=== PATIENT | female | born 1970 | race Hispanic/Latino ===

== ENCOUNTER 2017-12-06 18:12 | Emergency (ER) | payer OTHER, SELFPAY ==
--- NOTE | 2017-12-06 18:48 | RAD ---
PORTABLE CHEST: 12/06/17 HISTORY: Patient with heart palpitations and shortness of breath. COMPARISON: 06/22/17 study. Heart size and mediastinum are within normal limits. The lungs are clear of infiltrates. No bony find ings. IMPRESSION: No active intrathoracic disease. POS: [facility]
[2017-12-06 18:51] LABS: #Basophils 0.1 thou/uL (0.0-0.2); #Eosinphils 0.4 thou/uL (0.0-0.7); #Lymphocytes 2.5 thou/uL (1.20-3.40); #Monocytes 0.6 thou/uL (0.11-0.59); #Neutrophils 5.9 thou/uL (1.40-6.50); %Basophils 0.7 % (0.0-1.0); %Eosinophils 3.8 % (0.0-10.0); %Lymphocytes 26.8 % (21.0-51.0); %Monocytes 5.8 % (0.0-10.0); %Neutrophils 62.8 % (42.0-75.0); Hemoglobin 13.9 g/dL (12.0-16.0); Mean Corpuscular HGB CONC 33.8 g/dL (32.0-36.0); Mean Corpuscular Hemoglobin 31.8 pg (27.0-31.0); Mean Corpuscular Volume 94.2 fl (81.0-99.0); Mean Platelet Volume 7.9 fL (7.4-10.4); Platelet Count 236 thou/uL (130-400); RBC Distribution Width 12.9 % (11.5-14.5); Red Blood Cell (RBC) Count 4.36 mill/uL (4.20-5.40); White Blood Cell (WBC) Count 9.4 thou/uL (4.8-10.8)
[2017-12-06] MEDS ORDERED: Ketorolac Tromethamine 30 MG/ML VIAL ONE (18:52)
[2017-12-06 19:17] LABS: CKMB 0.8 ng/mL (0-6.6); Troponin I 0.012 ng/mL (< 0.028)
[2017-12-06 19:33] LABS: ALT (SGPT) 12 U/L (8-55); AST (SGOT) 12 U/L (5-34); Albumin 3.9 g/dL (3.5-5.0); Alkaline Phosphatase 69 U/L (40-150); Anion Gap 12 mmol/L (10-20); BUN (Urea Nitrogen) 10 mg/dL (7.0-18.7); Bilirubin, Total 0.6 mg/dL (0.2-1.2); CK (CPK) 71 U/L (29-168); Calc. Creatinine Clearance 0 mL/min (70-130); Calcium 8.9 mg/dL (7.8-10.44); Carbon Dioxide 24 mmol/L (22-29); Chloride 104 mmol/L (98-107); Estimated GFR-MDRD 83; Globulin 3.7 g/dL (2.4-3.5); Glucose 94 mg/dL (70-105); Lipase 30 U/L (8-78); Potassium 3.9 mmol/L (3.5-5.1); Protein, Total 7.6 g/dL (6.0-8.3); Sodium 136 mmol/L (136-145)
--- NOTE | 2017-12-09 12:09 | EKG ---
Test Reason : Blood Pressure : / mmHG Vent. Rate : 081 BPM Atrial Rate : 081 BPM P-R Int : 136 ms QRS Dur : 076 ms QT Int : 382 ms P-R-T Axes : 054 029 037 degrees QTc Int : 443 ms Normal sinus rhythm Normal ECG Confirmed by JAMESON FRANCOIS, LG ([id number]), editor farm journal TOMMIE CAMACHO ([id number]) on 12/09/2017 12:09:38 PM Referred By: Confirmed By:LG BARBA MD
== END 2017-12-06 19:43 | disposition home or self-care (01) ==
LOC: ERS 18:12
DX: J11.1 Influenza due to unidentified influenza virus with other respiratory manifestations (principal); R07.89 Other chest pain; J45.909 Unspecified asthma, uncomplicated; I45.6 Pre-excitation syndrome; G43.909 Migraine, unspecified, not intractable, without status migrainosus; Z79.899 Other long term (current) drug therapy
CPT/HCPCS: 36415; 71045; 80053; 82553; 83690; 84484; 85025; 93005; 96374; J1885

== ENCOUNTER 2018-03-08 18:13 | Inpatient (IN) | payer SELFPAY ==
[2018-03-08 20:12] LABS: #Basophils 0.1 thou/uL (0.0-0.2); #Eosinphils 0.3 thou/uL (0.0-0.7); #Lymphocytes 2.6 thou/uL (1.20-3.40); #Monocytes 0.7 thou/uL (0.11-0.59); #Neutrophils 7.5 thou/uL (1.40-6.50); %Eosinophils 2.9 % (0.0-10.0); %Lymphocytes 23.2 % (21.0-51.0); %Neutrophils 66.9 % (42.0-75.0); Hemoglobin 15.2 g/dL (12.0-16.0); Mean Corpuscular HGB CONC 33.6 g/dL (32.0-36.0); Mean Corpuscular Hemoglobin 31.2 pg (27.0-31.0); Mean Corpuscular Volume 92.9 fl (81.0-99.0); Mean Platelet Volume 7.6 fL (7.4-10.4); Platelet Count 296 thou/uL (130-400); RBC Distribution Width 12.4 % (11.5-14.5); Red Blood Cell (RBC) Count 4.86 mill/uL (4.20-5.40); White Blood Cell (WBC) Count 11.2 thou/uL (4.8-10.8)
[2018-03-08 20:37] LABS: ALT (SGPT) 17 U/L (8-55); AST (SGOT) 17 U/L (5-34); Albumin 4.2 g/dL (3.5-5.0); Alkaline Phosphatase 69 U/L (40-150); Anion Gap 13 mmol/L (10-20); BUN (Urea Nitrogen) 13 mg/dL (7.0-18.7); Bilirubin, Total 0.3 mg/dL (0.2-1.2); Calc. Creatinine Clearance 0 mL/min (70-130); Calcium 9.6 mg/dL (7.8-10.44); Carbon Dioxide 25 mmol/L (22-29); Chloride 102 mmol/L (98-107); Estimated GFR-MDRD 81; Globulin 4.1 g/dL (2.4-3.5); Glucose 94 mg/dL (70-105); Potassium 3.8 mmol/L (3.5-5.1); Protein, Total 8.3 g/dL (6.0-8.3); Sodium 136 mmol/L (136-145)
[2018-03-08] MEDS ORDERED: Ketorolac Tromethamine 30 MG/ML VIAL ONE (20:37)
[2018-03-08] MEDS ORDERED: diphenhydrAMINE 50 MG/ML VIAL ONE (20:37)
[2018-03-08] MEDS ORDERED: Metoclopramide HCl 10 MG/2 ML VIAL ONE (20:37)
[2018-03-08 20:41] LABS: Troponin I Less than 0.010 ng/mL (< 0.028)
[2018-03-08 21:09] LABS: Bilirubin Negative (Negative); Blood, Urine Small (Negative); Clarity CLEAR (Clear); Glucose, Urine (Dipstick) Negative (Negative); Leukocyte Negative (Negative); Nitrite Negative (Negative); Protein, Urine (Dipstick) Negative (Neg-Trace); Specific Gravity, Urine 1.011 (1.002-1.036); Urobilinogen 0.2 mg/dL (0.2-1.0)
[2018-03-08 21:12] LABS: Bacteria/HPF None Seen HPF (None Seen); Hyaline Casts/LPF 0-3 HYALINE CAST LPF (0-3 Hyaline); Pathc Cast-AUWi Flag 0.14 (0-2.49); Squamous Epithelial 0-3 HPF (0-3); WBC/HPF None Seen HPF (0-3)
[2018-03-08 21:16] LABS: Amphetamine Not Detected (NotDetected); Barbiturates Screen Not Detected (NotDetected); Benzodiazepine Screen Not Detected (NotDetected); Cocaine Metabolite Screen Not Detected (NotDetected); Medtox Control Line Valid? VALID (VALID); Medtox Reader # READER 1; Methadone Not Detected (NotDetected); Methamphetamine Not Detected (NotDetected); Opiate Screen Not Detected (NotDetected); Oxycodone Screen Not Detected (NotDetected); Phencyclidine (PCP) Not Detected (NotDetected); THC/Cannabinoid Screen Not Detected (NotDetected); Tricyclic Screen Not Detected (NotDetected)
[2018-03-08] MEDS ORDERED: methylPREDNISolone Sod Succ/PF 125 MG/2 ML VIAL ONE (22:51)
[2018-03-08] MEDS ORDERED: Magnesium Sulfate 2 GM/100 ML BAG ONE (22:51)
[2018-03-08] MEDS ORDERED: Water For Inject, Bacteriostat 30 ML ONE (22:52)
[2018-03-09] MEDS ORDERED: Valproate Sodium 1,000 MG in Sodium Chloride 0.9% 100 ML IVPB SCH ×2 (01:30→16:15)
[2018-03-09] MEDS ORDERED: Haloperidol Lactate 5 MG/ML VIAL ONE (02:50)
[2018-03-09] MEDS ORDERED: diphenhydrAMINE 50 MG/ML VIAL ONE (04:45)
[2018-03-09] MEDS ORDERED: Morphine 4 MG/ML VIAL SLOW IVP SCH (09:45)
[2018-03-09] MEDS: Ondansetron HCl/PF 4 MG/2 ML Vial IVP PRN (10:10)
[2018-03-09] MEDS ORDERED: Valproic Acid 250 MG CAP PO PRN (10:27)
[2018-03-09] MEDS ORDERED: Mag-Al 1200 mg/1200 mg/30 ML UDCUP PO PRN (10:27)
[2018-03-09] MEDS ORDERED: Calcium Carbonate 500 MG ChewTAB PO PRN (10:27)
[2018-03-09] MEDS ORDERED: Senokot 8.6 MG TAB PO PRN (10:27)
[2018-03-09] MEDS ORDERED: Sodium Chloride 0.9% 1,000 ML IV SCH (10:30)
[2018-03-09 10:58] VITALS: BMI 38.7
[2018-03-09] MEDS: traMADol HCl 50 MG TAB PO PRN (11:50)
--- NOTE | 2018-03-09 12:45 | CT ---
HEAD CT WITHOUT CONTRAST: 03/09/2018 HISTORY: Headache with nausea. COMPARISON: 05/14/2017 TECHNIQUE: Serial axial CT imaging at 5 mm intervals, from the vertex through the skull base, without contrast. FINDINGS: The imaged paranasal sinuses/mastoid air cells are well aerated. There is no displaced calvarial fra cture. No intracranial hemorrhage, midline shift, mass effect, or ventricular enlargement. IMPRESSION: No acute findings. POS: [facility]
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
[2018-03-09] MEDS: Gabapentin 100 MG CAP PO SCH ×2 (14:13→21:43)
[2018-03-09] MEDS: Morphine 4 MG/ML VIAL SLOW IVP PRN ×2 (14:14→21:42)
[2018-03-09] MEDS ORDERED: Dexamethasone 4 mg/ml Vial SLOW IVP SCH (16:15)
[2018-03-09] MEDS ORDERED: Metoclopramide HCl 10 MG/2 ML VIAL IVP SCH (16:15)
[2018-03-09] MEDS: Dihydroergotamine Mesylate 1 MG/ML AMP SLOW IVP SCH ×2 (16:45→22:56)
[2018-03-09] MEDS ORDERED: diphenhydrAMINE 25 MG CAP PO SCH (17:45)
[2018-03-09] MEDS: diphenhydrAMINE 50 MG/ML VIAL ONE ×2 (17:45)
[2018-03-09] MEDS ORDERED: diphenhydrAMINE 50 MG/ML VIAL IVP SCH (18:45)
[2018-03-09] MEDS: Famotidine 20 MG TAB PO SCH (21:43)
[2018-03-09] MEDS: Valproic Acid 250 MG CAP PO SCH (21:44)
--- NOTE | 2018-03-09 22:46 | CON ---
DATE OF CONSULTATION: 03/09/2018 CONSULTING PHYSICIAN: Hospitalist Service. IMPRESSION: 1. Probable migraine. 2. Questionable history of pseudotumor cerebri. PLAN: Rosa protocol. HISTORY OF PRESENT ILLNESS: Ms. Chahal is a 47-year-old white female who reports developing acute on set of a severe headache yesterday. She has had some intermittent headaches prior to this. There wa s some questionable diagnosis of pseudotumor cerebri. She was given some medication since admission, but is still experiencing a generalized throbbing headache. She has had some nausea and vomiting as sociated with it. Her vision has been a bit distorted. There is no transient vision loss. Her CT s can of the brain was unremarkable. PAST MEDICAL HISTORY: Intermittent headache associated with migraine. ALLERGIES: MEPERIDINE, PENICILLIN, SULFA, IODINE. FAMILY HISTORY: Noncontributory. SOCIAL HISTORY: Unremarkable. REVIEW OF SYSTEMS: Otherwise, negative for any focal neurologic symptoms. PHYSICAL EXAMINATION: Generally she is alert and appropriate. Her speech is fluent and clear. Exam is nonfocal. She is photophobic. SUMMARY: Given the acute onset of headache with a normal CT scan, I suspect this is likely migraine. We will see if she responds to the Rosa protocol.
[2018-03-10] MEDS: traMADol HCl 50 MG TAB PO PRN ×2 (00:34→06:26)
[2018-03-10] MEDS: Morphine 4 MG/ML VIAL SLOW IVP PRN ×4 (03:22→17:05)
[2018-03-10 04:16] LABS: #Lymphocytes 1.1 thou/uL (1.20-3.40); #Monocytes 0.3 thou/uL (0.11-0.59); #Neutrophils 14.1 thou/uL (1.40-6.50); %Basophils 0.1 % (0.0-1.0); %Eosinophils 0.1 % (0.0-10.0); %Lymphocytes 7.3 % (21.0-51.0); %Monocytes 2.2 % (0.0-10.0); %Neutrophils 90.3 % (42.0-75.0); Hemoglobin 14.3 g/dL (12.0-16.0); Mean Corpuscular HGB CONC 33.6 g/dL (32.0-36.0); Mean Corpuscular Hemoglobin 31.6 pg (27.0-31.0); Mean Corpuscular Volume 94.2 fl (81.0-99.0); Platelet Count 277 thou/uL (130-400); RBC Distribution Width 12.5 % (11.5-14.5); Red Blood Cell (RBC) Count 4.51 mill/uL (4.20-5.40); White Blood Cell (WBC) Count 15.6 thou/uL (4.8-10.8)
[2018-03-10 04:31] LABS: Anion Gap 13 mmol/L (10-20); BUN (Urea Nitrogen) 13 mg/dL (7.0-18.7); Calc. Creatinine Clearance 163 mL/min (70-130); Calcium 8.6 mg/dL (7.8-10.44); Carbon Dioxide 22 mmol/L (22-29); Chloride 106 mmol/L (98-107); Estimated GFR-MDRD 84; Glucose 119 mg/dL (70-105); Potassium 4.3 mmol/L (3.5-5.1); Sodium 137 mmol/L (136-145)
[2018-03-10] MEDS: Dihydroergotamine Mesylate 1 MG/ML AMP SLOW IVP SCH (05:24)
[2018-03-10] MEDS: Acetaminophen 325 MG TAB PO PRN (06:27)
[2018-03-10] MEDS: Ondansetron ODT 4 MG TAB PO PRN ×3 (06:54→21:53)
[2018-03-10] MEDS: Famotidine 20 MG TAB PO SCH ×2 (09:23→21:52)
[2018-03-10] MEDS: Valproic Acid 250 MG CAP PO SCH ×2 (09:23→21:52)
[2018-03-10] MEDS: Gabapentin 100 MG CAP PO SCH ×3 (09:23→21:52)
[2018-03-10] MEDS: Enoxaparin Sodium 40 MG/0.4 ML SYRINGE SC SCH (09:24)
--- NOTE | 2018-03-10 13:32 | PDOC.PN ---
- Subjective Encounter Start Date: 03/10/18 Encounter Start Time: 09:00 Subjective: c/o headache and photophobia -: vomited this am, cant keep anything down from am -: says cant tolerate ergot iv shots, gets intense itching and closing of thro -at - Objective Resuscitation Status: Resuscitation Status FULL:Full Resuscitation MAR Reviewed: Yes Vital Signs & Weight: Vital Signs (12 hours) Temp Pulse Resp BP BP Pulse Ox 03/10/18 12:00 98.4 F 68 18 97/58 L 96 03/10/18 08:05 98.4 F 67 18 113/74 96 03/10/18 07:50 98.4 F 67 18 96 03/10/18 03:30 98.6 F 80 18 103/66 94 L Weight Weight 240 lb I&O: 03/09/18 03/10/18 03/11/18 06:59 06:59 06:59 Intake Total 2520 Balance 2520 Result Diagrams: 03/10/18 03:22 03/10/18 03:22 Phys Exam - Physical Examination HEENT: PERRLA, moist MMs Neck: no JVD, supple Respiratory: no wheezing, no rales Cardiovascular: RRR, no significant murmur Gastrointestinal: soft, non-tender, positive bowel sounds Musculoskeletal: no edema, pulses present Neurological: non-focal, moves all 4 limbs Psychiatric: normal affect, A&O x 3 Dx/Plan (1) Migraine Code(s): G43.909 - MIGRAINE, UNSP, NOT INTRACTABLE, WITHOUT STATUS MIGRAINOSUS Status: Acute Qualifiers: Migraine type: with aura Status migrainosus presence: with status migrainosus Intractability: intractable Qualified Code(s): G43.111 - Migraine with aura, intractable, with status migrainosus (2) Nausea & vomiting Code(s): R11.2 - NAUSEA WITH VOMITING, UNSPECIFIED Status: Acute Qualifiers: Vomiting type: unspecified (3) Anxiety Code(s): F41.9 - ANXIETY DISORDER, UNSPECIFIED Status: Chronic (4) Hypothyroidism Code(s): E03.9 - HYPOTHYROIDISM, UNSPECIFIED Status: Chronic Qualifiers: Hypothyroidism type: unspecified Qualified Code(s): E03.9 - Hypothyroidism , unspecified (5) WPW (Kqouc-Sbewovtyb-Ngqlh syndrome) Code(s): I45.6 - PRE-EXCITATION SYNDROME Status: Resolved Comment: prior h/ o ablations x3 per patient (6) Obesity (BMI 30-39.9) Code(s): E66.9 - OBESITY, UNSPECIFIED Status: Chronic - Plan was placed on Rosa protocol for headache -: dc dihydroergotamine (pt feels her throat is closing up with itching) -: is on motrin, neurontin, valproic acid -: may dc home if tolerating oral diet and headache is better -: counselled to ambulate in hallway * . Review of Systems - Medications/Allergies Allergies/Adverse Reactions: Allergies Allergy/AdvReac Type Severity Reaction Status Date / Time Penicillins Allergy Severe Rash Verified 10/13/15 22:52 iodine Allergy Intermediate Rash Verified 10/13/15 22:52 meperidine HCl [From Demerol] Allergy Intermediate Rash Verified 10/13/15 22:52 adenosine Allergy Verified 06/22/17 20:11 Sulfa (Sulfonamide Allergy Verified 06/22/17 21:01 Antibiotics) Medications: Current Medications Acetaminophen (Tylenol) 650 mg PO Q4H PRN PRN Reason: Headache/Fever or Pain Last Admin: 03/10/18 06:27 Dose: 650 mg Al Hydroxide/Mg Hydroxide (Maalox) 30 ml PO Q6H PRN PRN Reason: Heartburn or Indigestion Calcium Carbonate (Tums) 1,000 mg PO Q4H PRN PRN Reason: Heartburn or Indigestion Enoxaparin Sodium (Lovenox) 40 mg SC 0900 [facility] Last Admin: 03/10/18 09:24 Dose: 40 mg Famotidine (Pepcid) 20 mg PO BID [facility] Last Admin: 03/10/18 09:23 Dose: 20 mg Gabapentin (Neurontin) 200 mg PO TID [facility] Last Admin: 03/10/18 09:23 Dose: 200 mg Guaifenesin/Dextromethorphan (Robitussin Dm) 15 ml PO Q4H PRN PRN Reason: Cough Metoclopramide HCl (Reglan) 10 mg IVP Q6H PRN PRN Reason: Nausea Morphine Sulfate (Morphine) 2 mg SLOW IVP Q4H PRN PRN Reason: CHEST PAIN/BP ELEVATIONS Last Admin: 03/10/18 13:03 Dose: 2 mg Ondansetron HCl (Zofran) 4 mg IVP Q6H PRN PRN Reason: Nausea/Vomiting Last Admin: 03/09/18 10:10 Dose: 4 mg Ondansetron HCl (Zofran Odt) 4 mg PO Q6H PRN PRN Reason: Nausea/Vomiting Last Admin: 03/10/18 13:10 Dose: 4 mg Senna (Senokot) 2 tab PO HSPRN PRN PRN Reason: Constipation Sodium Chloride (Flush - Normal Saline) 10 ml IVF Q12HR [facility] Last Admin: 03/10/18 09:24 Dose: Not Given Sodium Chloride (Flush - Normal Saline) 10 ml IVF PRN PRN PRN Reason: Saline Flush Tramadol HCl (Ultram) 50 mg PO Q6H PRN PRN Reason: Pain Last Admin: 03/10/18 06:26 Dose: 50 mg Valproic Acid (Depakene) 500 mg PO BID [facility] Last Admin: 03/10/18 09:23 Dose: 500 mg
[2018-03-10] MEDS: Ibuprofen 200 MG TAB PO SCH ×2 (14:06→21:52)
[2018-03-10] MEDS: Metoclopramide HCl 10 MG/2 ML VIAL IVP PRN (17:05)
[2018-03-11] MEDS: Acetaminophen 325 MG TAB PO PRN ×2 (01:21→18:01)
[2018-03-11] MEDS: traMADol HCl 50 MG TAB PO PRN ×3 (01:21→18:01)
[2018-03-11] MEDS: Famotidine 20 MG TAB PO SCH ×2 (07:39→21:37)
[2018-03-11] MEDS: Ibuprofen 200 MG TAB PO SCH (07:40)
[2018-03-11] MEDS: Gabapentin 100 MG CAP PO SCH ×3 (07:40→21:36)
[2018-03-11] MEDS: Enoxaparin Sodium 40 MG/0.4 ML SYRINGE SC SCH (07:40)
[2018-03-11] MEDS: Ondansetron ODT 4 MG TAB PO PRN (07:44)
[2018-03-11] MEDS ORDERED: SUMAtriptan Succinate 25 MG TAB PO SCH (08:00)
[2018-03-11] MEDS: Ketorolac Tromethamine 30 MG/ML VIAL IVP PRN ×3 (08:16→21:37)
[2018-03-11] MEDS: Sodium Chloride 0.9% 1,000 ML IV SCH ×2 (08:22→21:46)
[2018-03-11] MEDS: Valproic Acid 250 MG CAP PO SCH ×2 (10:48→21:37)
[2018-03-11] MEDS: Guaifenesin DM 100-10/5 ML UDCUP PO PRN (10:52)
--- NOTE | 2018-03-11 22:14 | PDOC.PN ---
- Subjective Encounter Start Date: 03/11/18 Encounter Start Time: 10:30 Patient seen and examined for intractable migraine. Nausea improving. No new complaints. No overnight events - Objective Resuscitation Status: Resuscitation Status FULL:Full Resuscitation MAR Reviewed: Yes Vital Signs & Weight: Vital Signs (12 hours) Temp Pulse Resp BP Pulse Ox 03/11/18 19:31 97.9 F 67 18 93/61 97 03/11/18 15:45 97.9 F 56 L 16 99/66 93 L 03/11/18 11:55 98.2 F 56 L 16 101/68 98 Weight Weight 240 lb I&O: 03/10/18 03/11/18 03/12/18 06:59 06:59 06:59 Intake Total 2520 2410 1525 Output Total 0 Balance 2520 2410 1525 Result Diagrams: 03/10/18 03:22 03/10/18 03:22 Phys Exam - Physical Examination Constitutional: NAD Respiratory: no wheezing, no rhonchi Cardiovascular: RRR, no rub Gastrointestinal: soft, non-tender Musculoskeletal: no edema Neurological: non-focal, moves all 4 limbs Psychiatric: A&O x 3 Dx/Plan - Plan DVT proph w/SCDs IMPRESSION/PLAN: 1. Intractable Migraine Still has headache depite Rosa protocol One dose Imitrex Add Toradol PRN Consider increasing Valproic dose in AM if headache persistent 2. N/V due to # 1 Cont PRN antimetics 3. Hypothyroidism Cont Levothyroxine 4. Obesity BMI 38.7 5. h/o WPW s/p Ablation 6. Anxiety 7. CKD 2 Review of Systems - Review of Systems Respiratory: negative: Cough, Dry, Shortness of Breath, Hemoptysis, SOB with Excertion, Pleuritic Pain, Sputum, Wheezing Cardiovascular: negative: chest pain, palpitations, orthopnea, paroxysmal nocturnal dyspnea, edema, light headedness, other - Medications/Allergies Allergies/Adverse Reactions: Allergies Allergy/AdvReac Type Severity Reaction Status Date / Time Penicillins Allergy Severe Rash Verified 10/13/15 22:52 iodine Allergy Intermediate Rash Verified 10/13/15 22:52 meperidine HCl [From Demerol] Allergy Intermediate Rash Verified 10/13/15 22:52 adenosine Allergy Verified 06/22/17 20:11 Sulfa (Sulfonamide Allergy Verified 06/22/17 21:01 Antibiotics) Medications: Current Medications Acetaminophen (Tylenol) 650 mg PO Q4H PRN PRN Reason: Headache/Fever or Pain Last Admin: 03/11/18 18:01 Dose: 650 mg Al Hydroxide/Mg Hydroxide (Maalox) 30 ml PO Q6H PRN PRN Reason: Heartburn or Indigestion Calcium Carbonate (Tums) 1,000 mg PO Q4H PRN PRN Reason: Heartburn or Indigestion Enoxaparin Sodium (Lovenox) 40 mg SC 0900 [facility] Last Admin: 03/11/18 07:40 Dose: 40 mg Famotidine (Pepcid) 20 mg PO BID [facility] Last Admin: 03/11/18 21:37 Dose: 20 mg Gabapentin (Neurontin) 200 mg PO TID [facility] Last Admin: 03/11/18 21:36 Dose: 200 mg Guaifenesin/Dextromethorphan (Robitussin Dm) 15 ml PO Q4H PRN PRN Reason: Cough Last Admin: 03/11/18 10:52 Dose: 15 ml Sodium Chloride (Normal Saline 0.9%) 1,000 mls @ 75 mls/hr IV .[id number] [facility] Last Admin: 03/11/18 21:46 Dose: 1,000 mls Ketorolac Tromethamine (Toradol) 15 mg IVP Q6H PRN PRN Reason: Moderate Pain (4-6) Stop: 03/16/18 08:01 Last Admin: 03/11/18 21:37 Dose: 15 mg Metoclopramide HCl (Reglan) 10 mg IVP Q6H PRN PRN Reason: Nausea Last Admin: 03/10/18 17:05 Dose: 10 mg Morphine Sulfate (Morphine) 2 mg SLOW IVP Q4H PRN PRN Reason: CHEST PAIN/BP ELEVATIONS Last Admin: 03/10/18 17:05 Dose: 2 mg Ondansetron HCl (Zofran) 4 mg IVP Q6H PRN PRN Reason: Nausea/Vomiting Last Admin: 03/09/18 10:10 Dose: 4 mg Ondansetron HCl (Zofran Odt) 4 mg PO Q6H PRN PRN Reason: Nausea/Vomiting Last Admin: 03/11/18 07:44 Dose: 4 mg Pantoprazole Sodium (Protonix) 40 mg PO DAILY [facility] Last Admin: 03/11/18 08:22 Dose: 40 mg Senna (Senokot) 2 tab PO HSPRN PRN PRN Reason: Constipation Sodium Chloride (Flush - Normal Saline) 10 ml IVF Q12HR [facility] Last Admin: 03/11/18 21:37 Dose: 10 ml Sodium Chloride (Flush - Normal Saline) 10 ml IVF PRN PRN PRN Reason: Saline Flush Tramadol HCl (Ultram) 50 mg PO Q6H PRN PRN Reason: Moderate Pain (4-6) Last Admin: 03/11/18 18:01 Dose: 50 mg Valproic Acid (Depakene) 500 mg PO BID [facility] Last Admin: 03/11/18 21:37 Dose: 500 mg
[2018-03-12] MEDS: traMADol HCl 50 MG TAB PO PRN (01:27)
[2018-03-12] MEDS: Ondansetron ODT 4 MG TAB PO PRN (01:27)
[2018-03-12] MEDS ORDERED: Sodium Chloride 0.9% 500 ML IV SCH (01:45)
[2018-03-12] MEDS: Morphine 4 MG/ML VIAL SLOW IVP PRN ×2 (03:52→11:49)
[2018-03-12] MEDS: Ketorolac Tromethamine 30 MG/ML VIAL IVP PRN ×2 (03:53→16:09)
[2018-03-12] MEDS ORDERED: Promethazine HCl 25 MG/ML VIAL SLOW IVP SCH (06:45)
--- NOTE | 2018-03-12 09:49 | PDOC.PN ---
- Subjective Encounter Start Date: 03/12/18 Encounter Start Time: 11:00 Subjective: Patient with persistent severe headache, retroorbital radiating to occiput -: and neck. No improvement over the weekend. Vomited x3 this AM, better -: now with phenergan. - Objective Resuscitation Status: Resuscitation Status FULL:Full Resuscitation MAR Reviewed: Yes Vital Signs & Weight: Vital Signs (12 hours) Temp Pulse Resp BP Pulse Ox 03/12/18 08:15 97.6 F 64 12 89/59 L 95 03/12/18 03:22 98.3 F 62 16 111/72 97 03/12/18 00:00 98.1 F 69 14 87/53 L 97 Weight Weight 240 lb I&O: 03/11/18 03/12/18 03/13/18 06:59 06:59 06:59 Intake Total 2410 2745 Output Total 0 Balance 2410 2745 Result Diagrams: 03/10/18 03:22 03/10/18 03:22 Phys Exam - Physical Examination In moderate distress from pain HEENT: PERRLA Respiratory: no wheezing, no rales, no rhonchi Cardiovascular: RRR, no significant murmur Gastrointestinal: soft, positive bowel sounds Neurological: non-focal, moves all 4 limbs Psychiatric: normal affect, A&O x 3 Dx/Plan (1) Intractable migraine Code(s): G43.919 - MIGRAINE, UNSP, INTRACTABLE, WITHOUT STATUS MIGRAINOSUS Status: Acute Qualifiers: Migraine type: with aura Status migrainosus presence: with status migrainosus Qualified Code(s): G43.111 - Migraine with aura, intractable, with status migrainosus Comment: worsened again, valproic acid added last night (2) Nausea & vomiting Code(s): R11.2 - NAUSEA WITH VOMITING, UNSPECIFIED Status: Acute Qualifiers: Vomiting type: unspecified Comment: recurrent inspite of Reglan and Phenergan (3) Hypotension Status: Acute Comment: no tachycardia, possibly related to valsalva from vomiting or to starting Valproic Acid, fluids increased (4) Obesity (BMI 30-39.9) Code(s): E66.9 - OBESITY, UNSPECIFIED Status: Chronic (5) Hypothyroidism Code(s): E03.9 - HYPOTHYROIDISM, UNSPECIFIED Status: Chronic Qualifiers: Hypothyroidism type: unspecified Qualified Code(s): E03.9 - Hypothyroidism , unspecified (6) WPW (Eckfu-Orkbrhjrt-Xmnlm syndrome) Code(s): I45.6 - PRE-EXCITATION SYNDROME Status: Resolved Comment: prior h/ o ablations x3 per patient - Plan cont current plan of care No response to Rosa protocol, spoke with Dr. Valdez and he recommended -: Morphine for pain in view of failed migraine treatment protocol, LP, and he -: will reevaluate in the afternoon. BP back up a bit currently. Will observe. * . - Discharge Day Encounter end time: 11:30
[2018-03-12] MEDS: Enoxaparin Sodium 40 MG/0.4 ML SYRINGE SC SCH (10:20)
[2018-03-12] MEDS: Famotidine 20 MG TAB PO SCH ×2 (10:20→20:52)
[2018-03-12] MEDS: Gabapentin 100 MG CAP PO SCH ×3 (10:20→20:55)
[2018-03-12] MEDS: Valproic Acid 250 MG CAP PO SCH ×2 (10:20→20:56)
[2018-03-12] MEDS: Sodium Chloride 0.9% 1,000 ML IV SCH ×2 (10:56→20:50)
[2018-03-12 14:25] LABS: CSF Source CSF; Clarity Clear (Clear); RBC Count - Manual 68 /cumm (None Seen); Tube # 4; WBC/NonHematics Count - Manual 4 /cumm (0-5)
--- NOTE | 2018-03-12 15:37 | RAD ---
FLUOROSCOPIC GUIDED LUMBAR PUNCTURE: DATE: 03/12/18. HISTORY: Intractable headache. Headache is getting worse. History of prior subarachnoid hemorrhage. TECHNIQUE: The procedure including the risks and complications were explained to the patient and informed consen t was obtained. The patient was placed on the fluoroscopy table in the prone position. Limited fluo roscopic evaluation of the lumbar spine was performed. An area at the L3-4 level was marked and them meticulously prepped and draped in the usual sterile fashion. The skin and subcutaneous tissues wer e infiltrated with buffered 1% Lidocaine for local anesthesia. Utilizing fluoroscopic guidance, a 22 -gauge spinal needle was advanced into the thecal sac. The inner stylette was removed with return of clear cerebrospinal fluid. Opening pressure was obtained. Approximately 10 mL of clear cerebrospin al fluid was collected and closing pressure was then performed. The inner stylette was replaced, and the needle was removed. Hemostasis was achieved with direct pre ssure. A dry sterile dressing was placed at the puncture site. The patient tolerated the procedure well and without immediate complication. FINDINGS: Technically successful lumbar puncture. Approximately 10 mL of clear cerebrospinal fluid was collect ed. The patient did have elevated opening pressure of 33 cm of water with elevated closing pressure of 23 cm of water. [facility] AP and lateral views lumbar spine demonstrate mild degenerative changes. Vertebral body height s are within normal limits and there is no fracture or subluxation. FLUOROSCOPY: Total fluoroscopy time is 0.4 minutes with total dose of 90.9 mGy. IMPRESSION: 1. Technically successful fluoroscopic-guided lumbar puncture. 2. Elevated opening pressure. 3. The above findings were discussed with Dr. Storm on 03/12/18 at 1411 hours. CODE CR POS: [facility]
[2018-03-12] MEDS: Ondansetron HCl/PF 4 MG/2 ML Vial IVP PRN (23:29)
[2018-03-13] MEDS: traMADol HCl 50 MG TAB PO PRN (01:19)
[2018-03-13] MEDS: Metoclopramide HCl 10 MG/2 ML VIAL IVP PRN ×2 (01:37→08:00)
[2018-03-13] MEDS: Ondansetron ODT 4 MG TAB PO PRN ×2 (06:35→21:49)
[2018-03-13] MEDS: Sodium Chloride 0.9% 1,000 ML IV SCH ×2 (06:38→18:47)
[2018-03-13] MEDS: Ketorolac Tromethamine 30 MG/ML VIAL IVP PRN (06:38)
[2018-03-13] MEDS: Famotidine 20 MG TAB PO SCH ×2 (07:53→21:49)
[2018-03-13] MEDS: Enoxaparin Sodium 40 MG/0.4 ML SYRINGE SC SCH (07:54)
[2018-03-13] MEDS: Gabapentin 100 MG CAP PO SCH ×3 (07:54→21:49)
[2018-03-13] MEDS: Valproic Acid 250 MG CAP PO SCH ×2 (07:54→21:50)
--- NOTE | 2018-03-13 09:42 | PDOC.PN ---
- Subjective Encounter Start Date: 03/13/18 Encounter Start Time: 11:45 Subjective: Patient with persistent JHAVERI. For some reason she didn't get any of the -: morphine ordered yesterday. No changes. - Objective Resuscitation Status: Resuscitation Status FULL:Full Resuscitation MAR Reviewed: Yes Vital Signs & Weight: Vital Signs (12 hours) Temp Pulse Resp BP Pulse Ox 03/13/18 08:38 98.3 F 61 14 89/59 L 94 L 03/13/18 03:50 98.3 F 80 16 98/70 96 03/13/18 03:43 95 03/13/18 00:00 98.1 F 79 18 96/65 95 Weight Weight 240 lb I&O: 03/12/18 03/13/18 03/14/18 06:59 06:59 06:59 Intake Total 2745 2404.5 Balance 2745 2404.5 Result Diagrams: 03/10/18 03:22 03/10/18 03:22 Phys Exam - Physical Examination moderate distress due to pain HEENT: moist MMs Respiratory: no wheezing, no rales, no rhonchi Cardiovascular: RRR, no significant murmur Musculoskeletal: no edema Neurological: non-focal, moves all 4 limbs Psychiatric: normal affect, A&O x 3 Dx/Plan (1) Intractable migraine Code(s): G43.919 - MIGRAINE, UNSP, INTRACTABLE, WITHOUT STATUS MIGRAINOSUS Status: Acute Qualifiers: Migraine type: with aura Status migrainosus presence: with status migrainosus Qualified Code(s): G43.111 - Migraine with aura, intractable, with status migrainosus Comment: worsened again, valproic acid added, adding morphine per Neurology recs (2) Nausea & vomiting Code(s): R11.2 - NAUSEA WITH VOMITING, UNSPECIFIED Status: Acute Qualifiers: Vomiting type: unspecified Comment: recurrent inspite of Reglan and Phenergan (3) Hypotension Status: Acute Comment: no tachycardia, fluids increased, improving (4) Obesity (BMI 30-39.9) Code(s): E66.9 - OBESITY, UNSPECIFIED Status: Chronic (5) Hypothyroidism Code(s): E03.9 - HYPOTHYROIDISM, UNSPECIFIED Status: Chronic Qualifiers: Hypothyroidism type: unspecified Qualified Code(s): E03.9 - Hypothyroidism , unspecified (6) WPW (Xakvu-Nrcwysbkv-Qjgrg syndrome) Code(s): I45.6 - PRE-EXCITATION SYNDROME Status: Resolved Comment: prior h/ o ablations x3 per patient - Plan cont current plan of care LP with increased opening pressure 30, dropped to 24 after 10mL of fluid -: removed. Fluid clear without signs of infection. Awaiting neurology reeval -: and further recs. * . - Discharge Day Encounter end time: 12:00
[2018-03-13] MEDS: Morphine 4 MG/ML VIAL SLOW IVP PRN ×3 (11:53→21:44)
[2018-03-13] MEDS: Guaifenesin DM 100-10/5 ML UDCUP PO PRN (21:50)
[2018-03-13] MEDS ORDERED: Indomethacin 25 mg Capsule PO SCH (23:45)
[2018-03-14] MEDS ORDERED: Indomethacin 25 mg Capsule PO SCH (01:45)
--- NOTE | 2018-03-14 01:46 | PDOC.EVN ---
Event Note - Event Note Event Note: RN called earlier with worsening headache. Had LP earlier today. CT brain ordered.
[2018-03-14] MEDS: Morphine 4 MG/ML VIAL SLOW IVP PRN ×2 (04:13→10:02)
[2018-03-14 05:55] LABS: #Eosinphils 0.7 thou/uL (0.0-0.7); #Lymphocytes 2.8 thou/uL (1.20-3.40); #Monocytes 0.7 thou/uL (0.11-0.59); #Neutrophils 4.7 thou/uL (1.40-6.50); %Basophils 0.4 % (0.0-1.0); %Eosinophils 7.8 % (0.0-10.0); %Lymphocytes 31.1 % (21.0-51.0); %Monocytes 8.1 % (0.0-10.0); %Neutrophils 52.6 % (42.0-75.0); Hemoglobin 13.2 g/dL (12.0-16.0); Mean Corpuscular HGB CONC 32.7 g/dL (32.0-36.0); Mean Corpuscular Hemoglobin 31.1 pg (27.0-31.0); Mean Corpuscular Volume 95.2 fl (81.0-99.0); Platelet Count 221 thou/uL (130-400); RBC Distribution Width 12.4 % (11.5-14.5); Red Blood Cell (RBC) Count 4.26 mill/uL (4.20-5.40); White Blood Cell (WBC) Count 8.9 thou/uL (4.8-10.8)
[2018-03-14 06:05] LABS: Anion Gap 9 mmol/L (10-20); BUN (Urea Nitrogen) 9 mg/dL (7.0-18.7); Calc. Creatinine Clearance 161 mL/min (70-130); Calcium 8.7 mg/dL (7.8-10.44); Carbon Dioxide 29 mmol/L (22-29); Chloride 103 mmol/L (98-107); Estimated GFR-MDRD 83; Glucose 89 mg/dL (70-105); Potassium 4.3 mmol/L (3.5-5.1); Sodium 137 mmol/L (136-145)
--- NOTE | 2018-03-14 09:18 | CT ---
PRELIMINARY REPORT/[facility]/EMERGENTY AFTER-HOURS PROCEDURE CT Head Without Intravenous Contrast CLINICAL HISTORY: 47 years old, female; Pain; Headache; Patient HX: Worsening headache, lumbar puncture done earlier to day TECHNIQUE: Axial computed tomography images of the head/brain without intravenous contrast. COMPARISON: No relevant prior studies available. FINDINGS: Brain: Low-lying cerebellar tonsils which may sectional No hemorrhage. No significant white matter di sease. No edema. Ventricles: Unremarkable. No ventriculomegaly. Bones/joints: Unremarkable. No acute fracture. Soft tissues: Unremarkable. Sinuses: Unremarkable as visualized. No acute sinusitis. Mastoid air cells: Unremarkable as visualized. No mastoid effusion. IMPRESSION: Low lying cerebellar tonsils which may. Further evaluation with MRI as clinically indicated if clinic al concern for intracranial hypotension suspected No intracranial hemorrhage. Please see discussion above. Thank you for allowing us to participate in the care of your patient. Dictated and Authenticated by: Daniel Tyson MD 03/14/2018 12:32 AM Central Time ([place] & [place]) FINAL REPORT EMERGENCY AFTER HOURS CT HEAD: Date: 03/14/18 HISTORY: Worsening headache. Lumbar puncture done earlier today. COMPARISON: 03/09/18. IMPRESSION: 1. No acute intracranial abnormalities demonstrated. 2. Cerebellar tonsils do appear to be low-lying. However, this could be attributable to slice select ion, and this is not well evaluated on CT exam. MRI may be helpful to further evaluate for possibilit y of low-lying cerebellar tonsils. Findings are in agreement with the preliminary report by Wil[facility]. POS: [facility]
[2018-03-14] MEDS: Ondansetron ODT 4 MG TAB PO PRN (09:26)
[2018-03-14] MEDS: Famotidine 20 MG TAB PO SCH ×2 (09:56→22:43)
[2018-03-14] MEDS: Enoxaparin Sodium 40 MG/0.4 ML SYRINGE SC SCH (09:56)
[2018-03-14] MEDS: Gabapentin 100 MG CAP PO SCH ×3 (09:56→22:40)
[2018-03-14] MEDS: Valproic Acid 250 MG CAP PO SCH ×2 (09:57→22:40)
[2018-03-14] MEDS: Metoclopramide HCl 10 MG/2 ML VIAL IVP PRN (11:58)
[2018-03-14] MEDS ORDERED: Ondansetron HCl/PF 4 MG/2 ML Vial IVP PRN (15:16)
--- NOTE | 2018-03-14 15:38 | PDOC.PN ---
- Subjective Encounter Start Date: 03/14/18 Encounter Start Time: 15:15 Subjective: f/u for intractable headache and nausea. Hospital day #5 tx with antiemetic -: IVF's, Gabapentin and NSAIDs. Some relief but not complete. + vertigo -: when ambulating or sitting up. Some blurred vision. - Objective Resuscitation Status: Resuscitation Status FULL:Full Resuscitation MAR Reviewed: Yes Vital Signs & Weight: Vital Signs (12 hours) Temp Pulse Resp BP Pulse Ox 03/14/18 11:20 98.2 F 75 14 101/68 96 03/14/18 08:02 98.2 F 72 16 93/65 95 03/14/18 04:00 98.5 F 79 16 108/71 93 L Weight Weight 240 lb I&O: 03/13/18 03/14/18 03/15/18 06:59 06:59 06:59 Intake Total 2404.5 Balance 2404.5 Result Diagrams: 03/14/18 05:38 03/14/18 05:38 Additional Labs: Microbiology 03/12/18 13:41 Lumbar - Fluid Body Fluid Culture - Preliminary Laboratory Tests 03/08/18 03/10/18 20:07 03:22 WBC 11.2 H 15.6 H Radiology Reviewed by me: Yes (CT brain - no acute process) Phys Exam - Physical Examination alert, responsive, mild distress + nystagmus HEENT: PERRLA, moist MMs, sclera anicteric, oral pharynx no lesions Neck: no nodes, no JVD, supple Respiratory: no wheezing, no rales, no rhonchi, clear to auscultation bilateral Cardiovascular: RRR, no significant murmur, no rub, gallop Gastrointestinal: soft, non-tender, no distention, positive bowel sounds Musculoskeletal: no edema, pulses present Neurological: non-focal, normal sensation, moves all 4 limbs Psychiatric: normal affect, A&O x 3 Skin: no rash, normal turgor, cap refill <2 seconds Dx/Plan (1) Intractable migraine Code(s): G43.919 - MIGRAINE, UNSP, INTRACTABLE, WITHOUT STATUS MIGRAINOSUS Status: Acute Qualifiers: Migraine type: with aura Status migrainosus presence: with status migrainosus Qualified Code(s): G43.111 - Migraine with aura, intractable, with status migrainosus Comment: Start Ibuprofen 800mg TID, start Prednisone 40mg daily, valproic acid added, adding morphine per Neurology recs, ROM for C-spine (2) Nausea & vomiting Code(s): R11.2 - NAUSEA WITH VOMITING, UNSPECIFIED Status: Acute Qualifiers: Vomiting type: unspecified Comment: No emesis, increase Zofran 8mg IV q6h, continue Reglan (3) Vertigo Code(s): R42 - DIZZINESS AND GIDDINESS Status: Acute Comment: ? etiology, ? BPPV, start Meclizine 25mg q6h (4) Neuropathy Code(s): G62.9 - POLYNEUROPATHY, UNSPECIFIED Status: Chronic Comment: Continue Gabapentin 200mg TID - Plan social services analyst, out of bed/ambulate, DVT proph w/SCDs Stable overall -: Start Prednisone 40mg po daily -: Start Meclizine 25mg q6h -: Start Ibuprofen 800mg TID -: Increase Zofran 8mg IV q6h prn nausea * Consider Scopolamine patch for home
[2018-03-14] MEDS ORDERED: predniSONE 20 MG TAB PO SCH (15:45)
[2018-03-14] MEDS: Meclizine HCl 25 MG TAB PO SCH ×2 (18:34→23:59)
[2018-03-14] MEDS: Sodium Chloride 0.9% 1,000 ML IV SCH (18:43)
[2018-03-14] MEDS: Ibuprofen 800 MG TAB PO SCH (22:41)
[2018-03-15] MEDS: Meclizine HCl 25 MG TAB PO SCH ×3 (06:37→17:49)
[2018-03-15] MEDS: Ibuprofen 800 MG TAB PO SCH ×3 (06:37→22:01)
[2018-03-15] MEDS: Morphine 4 MG/ML VIAL SLOW IVP PRN ×4 (07:00→22:04)
[2018-03-15] MEDS: predniSONE 20 MG TAB PO SCH (08:43)
[2018-03-15] MEDS: Famotidine 20 MG TAB PO SCH ×2 (08:44→22:01)
[2018-03-15] MEDS: Ondansetron ODT 4 MG TAB PO PRN ×2 (08:44→14:48)
[2018-03-15] MEDS: Gabapentin 100 MG CAP PO SCH ×3 (08:44→22:01)
[2018-03-15] MEDS: Valproic Acid 250 MG CAP PO SCH ×2 (08:45→22:02)
[2018-03-15] MEDS: Enoxaparin Sodium 40 MG/0.4 ML SYRINGE SC SCH (08:46)
[2018-03-15] MEDS: traMADol HCl 50 MG TAB PO PRN ×2 (08:46→14:48)
[2018-03-15] MEDS: Acetaminophen 325 MG TAB PO PRN ×2 (13:13→17:53)
--- NOTE | 2018-03-15 13:55 | PDOC.PN ---
- Subjective Encounter Start Date: 03/15/18 Encounter Start Time: 13:40 Subjective: f/u for intractable JHAVERI and nausea with mild improvement in last 24h. -: Dizziness and vertigo mildly improved with Meclizine. - Objective Resuscitation Status: Resuscitation Status FULL:Full Resuscitation MAR Reviewed: Yes Vital Signs & Weight: Vital Signs (12 hours) Temp Pulse Resp BP Pulse Ox 03/15/18 11:25 97.5 F L 69 18 107/72 95 03/15/18 07:55 98.1 F 65 16 95/62 94 L 03/15/18 04:00 98.3 F 74 16 99/66 99 Weight Weight 240 lb Result Diagrams: 03/14/18 05:38 03/14/18 05:38 Additional Labs: Microbiology 03/12/18 13:41 Lumbar - Fluid Body Fluid Culture - Preliminary 03/12/18 13:41 Lumbar - Fluid Body Fluid Culture - Preliminary Laboratory Tests 03/08/18 03/10/18 20:07 03:22 WBC 11.2 H 15.6 H Radiology Reviewed by me: Yes (CT brain - no acute process 03/13/18) Phys Exam - Physical Examination Constitutional: NAD alert, responsive HEENT: PERRLA, moist MMs, sclera anicteric, oral pharynx no lesions mild TTP in suboccipital region Neck: no nodes, no JVD, supple Respiratory: no wheezing, no rales, no rhonchi, clear to auscultation bilateral S1, S2 Cardiovascular: RRR, no significant murmur, no rub, gallop Gastrointestinal: soft, non-tender, no distention, positive bowel sounds Musculoskeletal: no edema, pulses present Neurological: non-focal, normal sensation, moves all 4 limbs Psychiatric: normal affect, A&O x 3 Skin: no rash, normal turgor, cap refill <2 seconds Dx/Plan (1) Intractable migraine Code(s): G43.919 - MIGRAINE, UNSP, INTRACTABLE, WITHOUT STATUS MIGRAINOSUS Status: Acute Qualifiers: Migraine type: with aura Status migrainosus presence: with status migrainosus Qualified Code(s): G43.111 - Migraine with aura, intractable, with status migrainosus Comment: Start Ibuprofen 800mg TID, start Prednisone 40mg daily, valproic acid added, adding morphine per Neurology recs, ROM for C-spine, check MRI brain today (2) Nausea & vomiting Code(s): R11.2 - NAUSEA WITH VOMITING, UNSPECIFIED Status: Acute Qualifiers: Vomiting type: unspecified Comment: No emesis, increase Zofran 8mg IV q6h, continue Reglan, ADAT (3) Vertigo Code(s): R42 - DIZZINESS AND GIDDINESS Status: Acute Comment: ? etiology, ? BPPV, start Meclizine 25mg q6h (4) Neuropathy Code(s): G62.9 - POLYNEUROPATHY, UNSPECIFIED Status: Chronic Comment: Continue Gabapentin 200mg TID - Plan out of bed/ambulate, DVT proph w/SCDs Stable overall -: Continue Prednisone 40mg daily -: Continue Meclizine 25mg QID -: Continue Zofran and Reglan -: Check MRI brain today * Re-consult Neurology if no improvement in next 24h
[2018-03-16] MEDS: Meclizine HCl 25 MG TAB PO SCH ×3 (00:54→14:36)
[2018-03-16] MEDS: Morphine 4 MG/ML VIAL SLOW IVP PRN ×2 (04:04→07:49)
[2018-03-16] MEDS: Ondansetron ODT 4 MG TAB PO PRN (04:06)
[2018-03-16] MEDS: Ibuprofen 800 MG TAB PO SCH ×2 (05:39→14:36)
[2018-03-16] MEDS: predniSONE 20 MG TAB PO SCH (07:47)
[2018-03-16] MEDS: Enoxaparin Sodium 40 MG/0.4 ML SYRINGE SC SCH (07:47)
[2018-03-16] MEDS: Famotidine 20 MG TAB PO SCH (07:47)
[2018-03-16] MEDS: Acetaminophen 325 MG TAB PO PRN (07:48)
[2018-03-16] MEDS: Gabapentin 100 MG CAP PO SCH ×2 (07:48→14:35)
[2018-03-16] MEDS: traMADol HCl 50 MG TAB PO PRN (07:48)
[2018-03-16] MEDS: Valproic Acid 250 MG CAP PO SCH (07:59)
[2018-03-16] MEDS ORDERED: diphenhydrAMINE 50 MG/ML VIAL IVP PRN (11:13)
[2018-03-16] MEDS ORDERED: Lorazepam 2 MG/ML VIAL SLOW IVP SCH (11:15)
--- NOTE | 2018-03-16 13:08 | MRI ---
MRI OF BRAIN NONCONTRAST: INDICATION: Intractable headache. FINDINGS: Reference is made to 05/10/17 brain MRI. Ventricular system is normal in size. There is no evidence of acute territorial infarction, intracra nial mass effect, or midline shift. No intracranial hemorrhagic susceptibility. Limited evaluation of skull base flow voids due to patient motion. No new, significant intraaxial signal abnormalities are seen. Redemonstration of a partially empty sella. IMPRESSION: There are no acute intracranial abnormalities. POS: [facility]
[2018-03-16 15:21] VITALS: TEMP 98.1
[2018-03-16 15:23] VITALS: BP 105/71
--- NOTE | 2018-03-16 17:08 | DIS ---
DATE OF ADMISSION: 03/09/2018 DATE OF DISCHARGE: 03/16/2018 DISCHARGE DIAGNOSES: 1. Intractable migraine headache. 2. Nausea and vomiting secondary to #1, resolved. 3. Vertigo, benign positional, improved. 4. Peripheral neuropathy. CONSULTATIONS: Dr. Fernie Valdez with Neurology Service. PERTINENT LABORATORY AND X-RAY FINDINGS: Complete metabolic profile within normal limits. Magnesium 2.0. CBC showed a white blood cell count ranging between 8.9-15.6. Urine drug screen dated 018 negative. CSF fluid culture dated 03/12/2018 showed no growth at [address] of the brain withou t contrast dated 03/09/2018 showed no acute intracranial process. CT of the brain dated 03/13/2018 s howed no intracranial hemorrhage. Low lying cerebellar tonsils. MRI of the brain dated 03/16/2018 s howed no acute intracranial process. HOSPITAL COURSE: Patient was admitted to the medical floor after presenting with intractable headach e likely migraine variant. The patient underwent a comprehensive evaluation including neuro imaging studies showing no acute process. The patient underwent lumbar puncture with CSF analysis showing no evidence of infectious process. The patient received IV valproic acid, Ultram, Neurontin, and morph ine sulfate for symptomatic relief. The patient was slow to clinically improve over the hospital cou rse with persistent headache and nausea. The patient received antiemetics, IV fluids, and general hoover pportive measures. The patient was evaluated by the Neurology Service due to the severity of her pre sent symptoms and slow clinical improvement. The patient continued to receive supportive measures in cluding NSAIDs with Motrin and Toradol. The patient did clinically improve by the time of discharge and remained stable throughout the hospital course. I have examined the patient at the time of disch arge and discussed radiographic and laboratory findings. The patient verbalizes understanding and ag reement and will discharge home on 03/16/2018. DISCHARGE MEDICATIONS: 1. Gabapentin 200 mg p.o. t.i.d. 2. Motrin 800 mg p.o. t.i.d. p.r.n. 3. Meclizine 25 mg p.o. q.6 hours p.r.n. 4. Prednisone 20 mg 1 tablet p.o. daily x 3 days, followed by half a tab p.o. daily x3 days. 5. Depakene 500 mg p.o. b.i.d. FOLLOWUP: The patient will follow up with local [facility] on an as needed basis. CONDITION ON DISCHARGE: Stable. ACTIVITY: Ad fuentes. DIET: Regular. CODE STATUS: FULL. DISPOSITION: Home on 03/16/2018.
== END 2018-03-16 17:00 | disposition home or self-care (01) | DRG 103 ==
LOC: ERS 18:13 → SJJU 03-09 06:54
PROVIDERS: ADMIT Internal Medicine; ATTEND Internal Medicine
PROC: 009U3ZX Drainage of Spinal Canal, Percutaneous Approach, Diagnostic (ICD-10-PCS; principal; 2018-03-12)
PROC: B01B1ZZ Fluoroscopy of Spinal Cord using Low Osmolar Contrast (ICD-10-PCS; 2018-03-12)
DX: G43.911 Migraine, unspecified, intractable, with status migrainosus (principal); H81.10 Benign paroxysmal vertigo, unspecified ear; G62.9 Polyneuropathy, unspecified; Z88.0 Allergy status to penicillin; Z88.2 Allergy status to sulfonamides; R00.0 Tachycardia, unspecified; E66.9 Obesity, unspecified; E03.9 Hypothyroidism, unspecified; I45.6 Pre-excitation syndrome; Z68.38 Body mass index [BMI] 38.0-38.9, adult; F41.9 Anxiety disorder, unspecified
CPT/HCPCS: 36415; 62270; 70450; 70551; 80048; 80053; 80306; 81003; 81015; 82553; 82945; 83605; 83735; 84157; 84484; 85025; 87070; 87205; 89051; 93005; 96365; 96367; 96375; 96376; A4216; J1100; J1110; J1200; J1630; J1650; J1885; J2060; J2270; J2405; J2550; J2765; J2930; J3475; J7050; J7506; Q0162

== ENCOUNTER 2018-03-28 23:21 | Inpatient (IN) | payer SELFPAY ==
[2018-03-29] MEDS ORDERED: Metoclopramide HCl 10 MG/2 ML VIAL ONE (00:40)
[2018-03-29] MEDS ORDERED: diphenhydrAMINE 50 MG/ML VIAL ONE (00:47)
[2018-03-29 01:04] LABS: #Basophils 0.1 thou/uL (0.0-0.2); #Eosinphils 0.4 thou/uL (0.0-0.7); #Lymphocytes 2.6 thou/uL (1.20-3.40); #Monocytes 0.9 thou/uL (0.11-0.59); #Neutrophils 7.5 thou/uL (1.40-6.50); %Basophils 0.9 % (0.0-1.0); %Eosinophils 3.3 % (0.0-10.0); %Lymphocytes 22.9 % (21.0-51.0); %Monocytes 7.5 % (0.0-10.0); %Neutrophils 65.3 % (42.0-75.0); Hemoglobin 13.4 g/dL (12.0-16.0); Mean Corpuscular HGB CONC 33.6 g/dL (32.0-36.0); Mean Corpuscular Hemoglobin 31.4 pg (27.0-31.0); Mean Corpuscular Volume 93.6 fl (81.0-99.0); Mean Platelet Volume 7.5 fL (7.4-10.4); Platelet Count 268 thou/uL (130-400); RBC Distribution Width 12.5 % (11.5-14.5); Red Blood Cell (RBC) Count 4.26 mill/uL (4.20-5.40); White Blood Cell (WBC) Count 11.5 thou/uL (4.8-10.8)
[2018-03-29] MEDS ORDERED: methylPREDNISolone Sod Succ/PF 125 MG/2 ML VIAL ONE (01:04)
[2018-03-29] MEDS ORDERED: Ondansetron ODT 4 MG TAB ONE (01:06)
[2018-03-29] MEDS ORDERED: Famotidine/PF 20 mg/2ml Vial SLOW IVP SCH (01:15)
[2018-03-29 01:19] LABS: ALT (SGPT) 11 U/L (8-55); AST (SGOT) 10 U/L (5-34); Albumin 3.6 g/dL (3.5-5.0); Alkaline Phosphatase 54 U/L (40-150); Anion Gap 8 mmol/L (10-20); BUN (Urea Nitrogen) 12 mg/dL (7.0-18.7); Bilirubin, Total 0.4 mg/dL (0.2-1.2); Calc. Creatinine Clearance 0 mL/min (70-130); Calcium 8.8 mg/dL (7.8-10.44); Carbon Dioxide 27 mmol/L (22-29); Chloride 105 mmol/L (98-107); Estimated GFR-MDRD 86; Globulin 3.2 g/dL (2.4-3.5); Glucose 98 mg/dL (70-105); Magnesium 1.8 mg/dL (1.6-2.6); Potassium 3.8 mmol/L (3.5-5.1); Protein, Total 6.8 g/dL (6.0-8.3); Sodium 136 mmol/L (136-145)
[2018-03-29 01:23] LABS: CKMB 0.3 ng/mL (0-6.6); Troponin I Less than 0.010 ng/mL (< 0.028)
[2018-03-29] MEDS ORDERED: Magnesium Sulfate 2 GM/100 ML BAG ONE (02:25)
[2018-03-29] MEDS ORDERED: Gabapentin 100 MG CAP PO SCH (02:45)
[2018-03-29] MEDS ORDERED: Divalproex Sodium DR 500 MG TAB PO SCH (02:45)
[2018-03-29] MEDS ORDERED: Ketorolac Tromethamine 30 MG/ML VIAL ONE (03:36)
[2018-03-29 04:09] LABS: Bilirubin Negative (Negative); Blood, Urine Moderate (Negative); Clarity CLEAR (Clear); Glucose, Urine (Dipstick) Negative (Negative); Leukocyte Negative (Negative); Nitrite Negative (Negative); Protein, Urine (Dipstick) Negative (Neg-Trace); Urobilinogen 0.2 mg/dL (0.2-1.0)
[2018-03-29 04:11] LABS: Pregnancy Test - Urine (BHCG) Negative (Negative); Pregu Control Background? CLEAR/WHITE (CLR/WHITE); Pregu Control Bar Appear? YES (CONTROL BAR)
[2018-03-29 04:12] LABS: Bacteria/HPF None Seen HPF (None Seen); Hyaline Casts/LPF 0-3 HYALINE CAST LPF (0-3 Hyaline); RBC/HPF 0-3 HPF (0-3); Specific Gravity Greater than 1.060 (1.002-1.036); Squamous Epithelial 0-3 HPF (0-3); WBC/HPF 0-3 HPF (0-3)
[2018-03-29 04:13] LABS: Specific Gravity, Urine Greater than 1.060 (1.002-1.036)
[2018-03-29] MEDS ORDERED: Promethazine HCl 25 MG/ML VIAL ONE (04:36)
[2018-03-29 05:55] VITALS: BMI 39.9
[2018-03-29] MEDS ORDERED: Mag-Al 1200 mg/1200 mg/30 ML UDCUP PO PRN (08:15)
--- NOTE | 2018-03-29 08:55 | RAD ---
CHEST 1 VIEW: Date: 03/29/18 COMPARISON: 12/06/17. HISTORY: Pain. FINDINGS: Normal cardiac silhouette. Pulmonary vessels and hilum are normal. Costophrenic angles are clear. No masses or consolidation. No pneumothorax or osseous abnormalities. IMPRESSION: No acute cardiopulmonary process. POS: [facility]
[2018-03-29] MEDS: Sodium Chloride 0.9% 1,000 ML IV SCH ×2 (09:07→20:21)
[2018-03-29] MEDS: Docusate 100 MG CAP PO SCH ×2 (09:07→20:19)
[2018-03-29] MEDS: Acetaminophen 325 MG TAB PO PRN ×2 (09:07→12:29)
[2018-03-29] MEDS: Gabapentin 100 MG CAP PO SCH ×3 (09:08→20:19)
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
[2018-03-29] MEDS: Valproic Acid 250 MG CAP PO PRN (10:35)
[2018-03-29] MEDS: Ondansetron ODT 4 MG TAB PO PRN (10:36)
[2018-03-29] MEDS ORDERED: ISOVUE-370 76%-LOCM 1 ML ONE (10:58)
--- NOTE | 2018-03-29 11:58 | CT ---
PRELIMINARY REPORT/[facility]/EMERGENTY AFTER-HOURS PROCEDURE CT Head Without Intravenous Contrast CLINICAL HISTORY: 47 years old, female; Pain; Headache; TECHNIQUE: Axial computed tomography images of the head/brain without intravenous contrast. COMPARISON: CT Brain WO Con 2018-03-14 00:15 FINDINGS: Brain: No acute findings. No hemorrhage. No significant white matter disease. No edema. Ventricles: No acute findings. No ventriculomegaly. Bones/joints: No acute findings. No acute fracture. Soft tissues: No acute findings. Sinuses: No acute sinusitis. Mild mucosal thickening, right maxillary sinus. Mastoid air cells: Unremarkable as visualized. No mastoid effusion. IMPRESSION: No acute intracranial pathology. Thank you for allowing us to participate in the care of your patient. Dictated and Authenticated by: Shaniqua Bhandari MD 03/29/2018 1:29 AM Central Time ([place] & [place]) FINAL REPORT HEAD CT WITHOUT CONTRAST: Date: 03/29/18 COMPARISON: None. HISTORY: Headache, pain. FINDINGS: I agree with the preliminary report given by [facility]. Mild mucosal thickening of right maxillary sinus n oted. No acute osseous abnormality. No intracranial hemorrhage, midline shift, mass effect, or ventri cular enlargement. IMPRESSION: No acute findings. POS: [facility]
--- NOTE | 2018-03-29 12:01 | CT ---
PRELIMINARY REPORT/[facility]/EMERGENTY AFTER-HOURS PROCEDURE CT Angiography Head With Intravenous Contrast CLINICAL HISTORY: 47 years old, female; Pain; Headache; Patient HX: Er 12; F47 presented to ed C/O intermittent JHAVERI with gradual onset 3 days ago. Pt reports feeling weakness with symptoms. Pt denies fever. Pt denies position making the JHAVERI better or worse. Pt denies injury or trauma to her head or neck. Pt also repor ts feeling tingly all over. Pt reports this JHAVERI is more severe from her previous episode. Neck pain rt sided; Additional info: *iv leaked during injection TECHNIQUE: Axial computed tomographic angiography images of the head with intravenous contrast using CT angiogra phy protocol. MIP reconstructed images were created and reviewed. Coronal and sagittal reformatted im ages were created and reviewed. COMPARISON: No relevant prior studies available. FINDINGS: Right internal carotid artery: No acute findings. Intracranial segment is patent with no significant stenosis. No aneurysm. Right anterior cerebral artery: No acute findings. 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 No occ lusion or significant stenosis. No aneurysm. Right middle cerebral artery: No acute findings. No occlusion or significant stenosis. No aneurysm. Right posterior cerebral artery: No acute findings. No occlusion or significant stenosis. No aneurysm . Right vertebral artery: Unremarkable as visualized. Left internal carotid artery: No acute findings. Intracranial segment is patent with no significant s tenosis. No aneurysm. Left anterior cerebral artery: No acute findings. No occlusion or significant stenosis. No aneurysm. Left middle cerebral artery: No acute findings. No occlusion or significant stenosis. No aneurysm. Left posterior cerebral artery: No acute findings. No occlusion or significant stenosis. No aneurysm. Left vertebral artery: Unremarkable as visualized. Basilar artery: No acute findings. No occlusion or significant stenosis. No aneurysm. Incidental note made of mild to moderate mucosal reaction, right maxillary sinus. IMPRESSION: No occlusion or significant stenosis. No aneurysm. 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 Incidental note made of mild to moderate mucosal reaction, right maxillary sinus. CT Angiography Neck With Intravenous Contrast TECHNIQUE: Axial computed tomographic angiography images of the neck with intravenous contrast using CT angiogra phy protocol. COMPARISON: CT Brain WO Con 2018-03-29 00:54 FINDINGS: VASCULATURE: Right common carotid artery: No acute findings. No significant stenosis. No dissection or occlusion. Right internal carotid artery: No acute findings. Extracranial segment is patent with no significant stenosis. No dissection or occlusion. Right external carotid artery: No acute findings. No occlusion. Right vertebral artery: No acute findings. No significant stenosis. No dissection or occlusion. Left common carotid artery: No acute findings. No significant stenosis. No dissection or occlusion. Left internal carotid artery: No acute findings. Extracranial segment is patent with no significant s tenosis. No dissection or occlusion. Left external carotid artery: No acute findings. No occlusion. Left vertebral artery: No acute findings. No significant stenosis. No dissection or occlusion. NECK: Bones/joints: Chronic degenerative spinal changes without acute fracture or dislocation. Soft tissues: Nonspecific increased number of borderline enlarged submandibular nodes bilaterally. CAROTID STENOSIS REFERENCE USING NASCET CRITERIA: % ICA stenosis = 0 percent. IMPRESSION: No acute findings. No significant stenosis. No dissection or occlusion. Thank you for allowing us to participate in the care of your patient. Dictated and Authenticated by: Shaniqua Bhandari MD 03/29/2018 2:46 AM Central Time ([place] & [place]) FINAL REPORT CT ANGIOGRAM OF THE HEAD AND NECK: History: Headache Comparison: 01-02-14 Technique: CT angiogram of the head and neck are performed in the axial plane. 3D reformatted images are submitted for interpretation. FINDINGS: Examination is suboptimal due to poor timing of bolus. No evidence of vascular occlusion involving th e cervical, carotid or vertebral arteries. No significant stenosis. Diminutive right A1 segment likel y due to congenital variant. No significant stenosis at the level of the [place]. POS: [facility]
[2018-03-29] MEDS: Metoclopramide HCl 10 MG/2 ML VIAL IVP PRN (12:25)
[2018-03-29] MEDS: Ibuprofen 800 MG TAB PO SCH ×2 (14:16→21:04)
[2018-03-29] MEDS ORDERED: Morphine 4 MG/ML VIAL SLOW IVP PRN ×2 (17:08→17:09)
[2018-03-29] MEDS: Dihydroergotamine Mesylate 1 MG/ML AMP SLOW IVP SCH ×2 (17:54→23:58)
[2018-03-29] MEDS: Metoclopramide HCl 10 MG/2 ML VIAL IVP SCH ×2 (17:54→23:57)
[2018-03-29] MEDS: Losartan 25 MG TAB PO SCH (20:22)
[2018-03-30] MEDS: Dihydroergotamine Mesylate 1 MG/ML AMP SLOW IVP SCH ×4 (05:31→23:09)
[2018-03-30] MEDS: Metoclopramide HCl 10 MG/2 ML VIAL IVP SCH ×4 (05:31→23:09)
[2018-03-30] MEDS: Ibuprofen 800 MG TAB PO SCH ×3 (05:31→20:13)
[2018-03-30] MEDS: Sodium Chloride 0.9% 1,000 ML IV SCH ×3 (08:33→20:12)
[2018-03-30] MEDS: Gabapentin 100 MG CAP PO SCH ×3 (08:33→20:13)
[2018-03-30] MEDS: Docusate 100 MG CAP PO SCH ×2 (08:33→20:13)
[2018-03-30] MEDS: Morphine 4 MG/ML VIAL SLOW IVP PRN ×2 (08:39→21:04)
[2018-03-30] MEDS: Ondansetron ODT 4 MG TAB PO PRN (08:49)
--- NOTE | 2018-03-30 12:46 | PDOC.PN ---
- Subjective Encounter Start Date: 03/30/18 Encounter Start Time: 12:43 Ms. Chahal was seen in follow-up of chronic headache. She says the pain is only a 7/10. She also complains of continued nausea. - Objective Resuscitation Status: Resuscitation Status FULL:Full Resuscitation MAR Reviewed: Yes Vital Signs & Weight: Vital Signs (12 hours) Temp Pulse Resp BP Pulse Ox 03/30/18 11:12 99.1 F 72 16 105/60 95 03/30/18 08:00 98.1 F 65 18 03/30/18 07:33 98.1 F 65 18 96/53 L 95 03/30/18 03:33 98.0 F 60 14 101/57 L 95 Weight Admit Weight 247 lb Weight 251 lb I&O: 03/29/18 03/30/18 03/31/18 06:59 06:59 06:59 Intake Total 60 2783 100 Output Total 1 Balance 60 2782 100 Result Diagrams: 03/29/18 00:45 03/29/18 00:45 Phys Exam - Physical Examination HEENT: PERRLA Respiratory: no wheezing, no rales, no rhonchi, clear to auscultation bilateral Cardiovascular: RRR, no significant murmur, no rub Gastrointestinal: soft, positive bowel sounds Musculoskeletal: no edema Dx/Plan (1) Intractable headache Code(s): R51 - HEADACHE Status: Acute (2) Asthma Code(s): J45.909 - UNSPECIFIED ASTHMA, UNCOMPLICATED Status: Chronic (3) Obesity (BMI 30-39.9) Code(s): E66.9 - OBESITY, UNSPECIFIED Status: Chronic - Plan * Intractable Headache- ? etiology * Continue as per Neurology recommendations * encouraged ambulation.
[2018-03-30] MEDS: Losartan 25 MG TAB PO SCH (20:13)
[2018-03-31] MEDS: Morphine 4 MG/ML VIAL SLOW IVP PRN ×2 (02:32→11:36)
[2018-03-31] MEDS: Sodium Chloride 0.9% 1,000 ML IV SCH ×3 (04:05→21:14)
[2018-03-31] MEDS: Ibuprofen 800 MG TAB PO SCH ×3 (05:51→21:22)
[2018-03-31] MEDS: Gabapentin 100 MG CAP PO SCH ×3 (09:50→21:16)
[2018-03-31] MEDS: Valproic Acid 250 MG CAP PO PRN (09:50)
[2018-03-31] MEDS: Docusate 100 MG CAP PO SCH ×2 (09:50→21:15)
[2018-03-31] MEDS: Metoclopramide HCl 10 MG/2 ML VIAL IVP PRN ×2 (13:35→18:16)
[2018-03-31] MEDS ORDERED: Ketorolac Tromethamine 30 MG/ML VIAL IVP PRN (13:39)
--- NOTE | 2018-03-31 13:39 | PDOC.PN ---
- Subjective Encounter Start Date: 03/31/18 Encounter Start Time: 13:41 Patient seen and examined for intractable headaches. Still complains of a headache today. Vital signs stable and no focal signs. Had no acute events overnight. - Objective Resuscitation Status: Resuscitation Status FULL:Full Resuscitation MAR Reviewed: Yes Vital Signs & Weight: Vital Signs (12 hours) Temp Pulse Resp BP Pulse Ox 03/31/18 12:00 97.8 F 58 L 16 90/60 98 03/31/18 08:00 97.5 F L 64 16 97 03/31/18 07:44 97.5 F L 64 16 109/68 97 03/31/18 06:18 61 109/57 L 03/31/18 06:15 109/57 L 03/31/18 04:00 97.6 F 61 16 92/52 L 97 Weight Admit Weight 247 lb Weight 257 lb 14.4 oz I&O: 03/30/18 03/31/18 04/01/18 06:59 06:59 06:59 Intake Total 2783 2130 Output Total 1 Balance 2782 2130 Result Diagrams: 03/29/18 00:45 03/29/18 00:45 Additional Labs: Accuchecks 03/30/18 16:43 POC Glucose 109 Phys Exam - Physical Examination Constitutional: NAD HEENT: PERRLA, sclera anicteric Neck: supple, full ROM Respiratory: no wheezing, no rales, no rhonchi, clear to auscultation bilateral Cardiovascular: RRR, no significant murmur, no rub Gastrointestinal: soft, non-tender, no distention, positive bowel sounds Musculoskeletal: no edema, pulses present Neurological: non-focal, moves all 4 limbs Psychiatric: normal affect, A&O x 3 Skin: no rash, normal turgor Dx/Plan (1) Intractable headache Code(s): R51 - HEADACHE Status: Acute Qualifiers: Headache type: unspecified Headache chronicity pattern: chronic headache Qualified Code(s): R51 - Headache (2) Migraine Code(s): G43.909 - MIGRAINE, UNSP, NOT INTRACTABLE, WITHOUT STATUS MIGRAINOSUS Status: Chronic Qualifiers: Migraine type: with aura Status migrainosus presence: with status migrainosus Intractability: intractable Qualified Code(s): G43.111 - Migraine with aura, intractable, with status migrainosus (3) Obesity (BMI 30-39.9) Code(s): E66.9 - OBESITY, UNSPECIFIED Status: Chronic - Plan cont current plan of care, out of bed/ambulate Neurology on board, recs appreciated. Continue current plan. Will consider a dose of Toradol if headache continues. Likely discharge tomorrow if continued improvement. Review of Systems - Medications/Allergies Allergies/Adverse Reactions: Allergies Allergy/AdvReac Type Severity Reaction Status Date / Time Gadolinium-Containing Allergy Severe Anaphylaxis Verified 03/29/18 06:14 Contrast Medi Penicillins Allergy Severe Rash Verified 10/13/15 22:52 iodine Allergy Intermediate Rash Verified 10/13/15 22:52 meperidine HCl [From Demerol] Allergy Intermediate Rash Verified 10/13/15 22:52 adenosine Allergy Verified 06/22/17 20:11 Sulfa (Sulfonamide Allergy Verified 06/22/17 21:01 Antibiotics) Medications: Current Medications Acetaminophen (Tylenol) 650 mg PO Q4H PRN PRN Reason: Headache/Fever or Pain Last Admin: 03/29/18 12:29 Dose: 650 mg Al Hydroxide/Mg Hydroxide (Maalox) 30 ml PO Q6H PRN PRN Reason: Heartburn or Indigestion Docusate Sodium (Colace) 100 mg PO BID [facility] Last Admin: 03/31/18 09:50 Dose: Not Given Gabapentin (Neurontin) 200 mg PO TID [facility] Last Admin: 03/31/18 09:50 Dose: 200 mg Sodium Chloride (Normal Saline 0.9%) 1,000 mls @ 100 mls/hr IV .Q10H [facility] Last Admin: 03/31/18 05:54 Dose: 1,000 mls Ibuprofen (Motrin) 800 mg PO Q8HR FRANNY Last Admin: 03/31/18 13:35 Dose: 800 mg Losartan Potassium (Cozaar) 25 mg PO HS [facility] Last Admin: 03/30/18 20:13 Dose: 25 mg Metoclopramide HCl (Reglan) 5 mg IVP Q4H PRN PRN Reason: Nausea Last Admin: 03/31/18 13:35 Dose: 5 mg Morphine Sulfate (Morphine) 2 mg SLOW IVP Q4H PRN PRN Reason: .MILD PAIN Last Admin: 03/31/18 11:36 Dose: 2 mg Morphine Sulfate (Morphine) 4 mg SLOW IVP Q4H PRN PRN Reason: .MODERATE PAIN Last Admin: 03/30/18 03:48 Dose: 4 mg Morphine Sulfate (Morphine) 5 mg SLOW IVP Q4H PRN PRN Reason: .SEVERE PAIN Ondansetron HCl (Zofran Odt) 4 mg PO Q6H PRN PRN Reason: Nausea/Vomiting Last Admin: 03/30/18 08:49 Dose: 4 mg Valproic Acid (Depakene) 500 mg PO BIDPRN PRN PRN Reason: Headache Last Admin: 03/31/18 09:50 Dose: 500 mg
[2018-03-31] MEDS: Acetaminophen 325 MG TAB PO PRN (18:17)
[2018-03-31] MEDS: Losartan 25 MG TAB PO SCH (21:16)
[2018-03-31] MEDS: Valproic Acid 250 MG CAP PO SCH (21:16)
[2018-04-01] MEDS: Morphine 4 MG/ML VIAL SLOW IVP PRN (03:23)
[2018-04-01] MEDS: Ondansetron ODT 4 MG TAB PO PRN ×2 (03:23→20:08)
[2018-04-01 05:24] LABS: #Basophils 0.1 thou/uL (0.0-0.2); #Eosinphils 0.9 thou/uL (0.0-0.7); #Lymphocytes 2.8 thou/uL (1.20-3.40); #Monocytes 0.8 thou/uL (0.11-0.59); #Neutrophils 6.2 thou/uL (1.40-6.50); %Basophils 0.5 % (0.0-1.0); %Lymphocytes 26.4 % (21.0-51.0); %Monocytes 7.6 % (0.0-10.0); %Neutrophils 57.4 % (42.0-75.0); Hemoglobin 12.1 g/dL (12.0-16.0); Mean Corpuscular HGB CONC 33.3 g/dL (32.0-36.0); Mean Corpuscular Hemoglobin 31.6 pg (27.0-31.0); Mean Corpuscular Volume 94.8 fl (81.0-99.0); Mean Platelet Volume 8.5 fL (7.4-10.4); Platelet Count 219 thou/uL (130-400); RBC Distribution Width 12.7 % (11.5-14.5); Red Blood Cell (RBC) Count 3.82 mill/uL (4.20-5.40); White Blood Cell (WBC) Count 10.7 thou/uL (4.8-10.8)
[2018-04-01 06:11] LABS: Anion Gap 10 mmol/L (10-20); BUN (Urea Nitrogen) 16 mg/dL (7.0-18.7); Calc. Creatinine Clearance 180 mL/min (70-130); Calcium 8.2 mg/dL (7.8-10.44); Carbon Dioxide 24 mmol/L (22-29); Chloride 108 mmol/L (98-107); Estimated GFR-MDRD 86; Glucose 92 mg/dL (70-105); Potassium 3.8 mmol/L (3.5-5.1); Sodium 138 mmol/L (136-145)
[2018-04-01] MEDS: Ibuprofen 800 MG TAB PO SCH ×3 (06:16→21:56)
[2018-04-01] MEDS: Sodium Chloride 0.9% 1,000 ML IV SCH ×2 (06:17→20:10)
[2018-04-01] MEDS ORDERED: Sodium Chloride 0.9% 1,000 ML IV SCH (08:30)
[2018-04-01] MEDS: Docusate 100 MG CAP PO SCH ×2 (09:16→20:10)
[2018-04-01] MEDS: Valproic Acid 250 MG CAP PO SCH ×2 (09:17→20:09)
[2018-04-01] MEDS: Gabapentin 100 MG CAP PO SCH ×3 (09:17→20:08)
[2018-04-01] MEDS: Fioricet 325/50/40 mg Tablet PO PRN ×3 (10:16→20:09)
[2018-04-01] MEDS ORDERED: Ketorolac Tromethamine 30 MG/ML VIAL IVP SCH (13:30)
--- NOTE | 2018-04-01 13:33 | PDOC.PN ---
- Subjective Encounter Start Date: 04/01/18 Encounter Start Time: 13:33 Patient seen and examined for intractable headaches. Still has complains of headahes. Neurology reviewed today. No new recommenations. No acute events overnight. - Objective Resuscitation Status: Resuscitation Status FULL:Full Resuscitation MAR Reviewed: Yes Vital Signs & Weight: Vital Signs (12 hours) Temp Pulse Resp BP Pulse Ox 04/01/18 11:47 97.9 F 76 16 98/54 L 96 04/01/18 08:59 98.6 F 106 H 20 98 04/01/18 08:00 98.6 F 106 H 20 129/89 98 04/01/18 03:22 109/61 04/01/18 03:04 97.7 F 72 16 102/57 L 97 Weight Admit Weight 247 lb Weight 260 lb 6.4 oz I&O: 03/31/18 04/01/18 04/02/18 06:59 06:59 06:59 Intake Total 2130 1437 Balance 2130 1437 Result Diagrams: 04/01/18 04:15 04/01/18 04:15 Phys Exam - Physical Examination HEENT: PERRLA, moist MMs, sclera anicteric Neck: no JVD, supple, full ROM Respiratory: no wheezing, no rales, no rhonchi, clear to auscultation bilateral Cardiovascular: RRR, no significant murmur, no rub Gastrointestinal: soft, non-tender, no distention, positive bowel sounds Musculoskeletal: no edema, pulses present Neurological: non-focal, moves all 4 limbs Psychiatric: normal affect, A&O x 3 Skin: no rash, normal turgor Dx/Plan (1) Intractable headache Code(s): R51 - HEADACHE Status: Acute Qualifiers: Headache type: unspecified Headache chronicity pattern: chronic headache Qualified Code(s): R51 - Headache Comment: Stable but still has headaches despite multiple interventions. Neuro on board. Recs appreciated. (2) Migraine Code(s): G43.909 - MIGRAINE, UNSP, NOT INTRACTABLE, WITHOUT STATUS MIGRAINOSUS Status: Chronic Qualifiers: Migraine type: with aura Status migrainosus presence: with status migrainosus Intractability: intractable Qualified Code(s): G43.111 - Migraine with aura, intractable, with status migrainosus (3) Obesity (BMI 30-39.9) Code(s): E66.9 - OBESITY, UNSPECIFIED Status: Chronic - Plan cont current plan of care, out of bed/ambulate Continue current managemen. IV toradol 30 mg- one time dose for headaches- Will reassess patient afterwards. Review of Systems - Medications/Allergies Allergies/Adverse Reactions: Allergies Allergy/AdvReac Type Severity Reaction Status Date / Time Gadolinium-Containing Allergy Severe Anaphylaxis Verified 03/29/18 06:14 Contrast Medi Penicillins Allergy Severe Rash Verified 10/13/15 22:52 iodine Allergy Intermediate Rash Verified 10/13/15 22:52 meperidine HCl [From Demerol] Allergy Intermediate Rash Verified 10/13/15 22:52 adenosine Allergy Verified 06/22/17 20:11 Sulfa (Sulfonamide Allergy Verified 06/22/17 21:01 Antibiotics) Medications: Current Medications Acetaminophen (Tylenol) 650 mg PO Q4H PRN PRN Reason: Headache/Fever or Pain Last Admin: 03/31/18 18:17 Dose: 650 mg Acetaminophen/Butalbital/Caffeine (Fioricet) 1 tab PO Q4H PRN PRN Reason: Headache Stop: 04/06/18 08:26 Last Admin: 04/01/18 10:16 Dose: 1 tab Al Hydroxide/Mg Hydroxide (Maalox) 30 ml PO Q6H PRN PRN Reason: Heartburn or Indigestion Docusate Sodium (Colace) 100 mg PO BID [facility] Last Admin: 04/01/18 09:16 Dose: Not Given Gabapentin (Neurontin) 200 mg PO TID [facility] Last Admin: 04/01/18 09:17 Dose: 200 mg Sodium Chloride (Normal Saline 0.9%) 1,000 mls @ 100 mls/hr IV .Q10H [facility] Last Admin: 04/01/18 06:17 Dose: 1,000 mls Ibuprofen (Motrin) 800 mg PO Q8HR [facility] Last Admin: 04/01/18 06:16 Dose: 800 mg Ketorolac Tromethamine (Toradol) 30 mg IVP ONE [facility] Stop: 04/06/18 13:31 Losartan Potassium (Cozaar) 25 mg PO HS [facility] Last Admin: 03/31/18 21:16 Dose: Not Given Metoclopramide HCl (Reglan) 5 mg IVP Q4H PRN PRN Reason: Nausea Last Admin: 03/31/18 18:16 Dose: 5 mg Morphine Sulfate (Morphine) 2 mg SLOW IVP Q4H PRN PRN Reason: .MILD PAIN Last Admin: 04/01/18 03:23 Dose: 2 mg Morphine Sulfate (Morphine) 4 mg SLOW IVP Q4H PRN PRN Reason: .MODERATE PAIN Last Admin: 03/30/18 03:48 Dose: 4 mg Morphine Sulfate (Morphine) 5 mg SLOW IVP Q4H PRN PRN Reason: .SEVERE PAIN Ondansetron HCl (Zofran Odt) 4 mg PO Q6H PRN PRN Reason: Nausea/Vomiting Last Admin: 04/01/18 03:23 Dose: 4 mg Sodium Chloride (Flush - Normal Saline) 10 ml IVF Q12HR [facility] Last Admin: 04/01/18 09:20 Dose: Not Given Sodium Chloride (Flush - Normal Saline) 10 ml IVF PRN PRN PRN Reason: Saline Flush Valproic Acid (Depakene) 500 mg PO BID [facility] Last Admin: 04/01/18 09:17 Dose: 500 mg
[2018-04-02] MEDS: Sodium Chloride 0.9% 1,000 ML IV SCH ×2 (02:51→05:55)
[2018-04-02 05:52] LABS: #Basophils 0.1 thou/uL (0.0-0.2); #Lymphocytes 2.2 thou/uL (1.20-3.40); #Monocytes 0.5 thou/uL (0.11-0.59); #Neutrophils 4.7 thou/uL (1.40-6.50); %Eosinophils 11.4 % (0.0-10.0); %Lymphocytes 25.8 % (21.0-51.0); %Monocytes 5.7 % (0.0-10.0); %Neutrophils 56.1 % (42.0-75.0); Hemoglobin 12.2 g/dL (12.0-16.0); Mean Corpuscular HGB CONC 34.3 g/dL (32.0-36.0); Mean Corpuscular Hemoglobin 32.6 pg (27.0-31.0); Mean Corpuscular Volume 94.9 fl (81.0-99.0); Mean Platelet Volume 8.9 fL (7.4-10.4); Platelet Count 219 thou/uL (130-400); RBC Distribution Width 12.7 % (11.5-14.5); Red Blood Cell (RBC) Count 3.73 mill/uL (4.20-5.40); White Blood Cell (WBC) Count 8.4 thou/uL (4.8-10.8)
[2018-04-02] MEDS: Ibuprofen 800 MG TAB PO SCH (05:55)
[2018-04-02 06:04] LABS: Anion Gap 10 mmol/L (10-20); BUN (Urea Nitrogen) 11 mg/dL (7.0-18.7); Calc. Creatinine Clearance 165 mL/min (70-130); Calcium 8.8 mg/dL (7.8-10.44); Carbon Dioxide 27 mmol/L (22-29); Chloride 106 mmol/L (98-107); Estimated GFR-MDRD 77; Glucose 117 mg/dL (70-105); Potassium 4.1 mmol/L (3.5-5.1); Sodium 139 mmol/L (136-145)
[2018-04-02 07:41] VITALS: BP 108/59; TEMP 98.3
[2018-04-02] MEDS: Gabapentin 100 MG CAP PO SCH (09:31)
[2018-04-02] MEDS: Fioricet 325/50/40 mg Tablet PO PRN (09:31)
[2018-04-02] MEDS: Docusate 100 MG CAP PO SCH (09:32)
[2018-04-02] MEDS: Valproic Acid 250 MG CAP PO SCH (09:32)
--- NOTE | 2018-04-02 13:26 | DIS ---
DATE OF ADMISSION: 03/29/2018 DATE OF DISCHARGE: 04/02/2018 DISCHARGE DIAGNOSES: 1. Intractable headaches, migraine. 2. Obesity. 3. History of Vwlna-Bteciykji-Gtdqu. 4. Status post ablation. HOSPITAL COURSE: Ms. Azra Chahal is a 47-year-old female with a history of chronic migraine head aches, subdural hematoma about 3 years ago who was recently discharged from this hospital about 3 mon ths ago when she was admitted for intractable migraine. For the past week or two, she started having a headache on and off, associated with double vision, nausea, vomiting, and generalized weakness. S he reported the medication she was discharged on gave her ____ in her mouth and was unable to eat pro perly. She also describes a sharp headache and pain in the back of her head in the occipital region radiating to her neck and her shoulders which makes her unable to lift her arms which was the reason she came to the hospital. She had been set up at the [facility] which she says she never went to. At the emergency room, physical examination was unremarkable. Her labs were also largely u nremarkable. EKG showed normal sinus rhythm. She had a CT scan done which was negative for any acut e intracranial process as well as a CT angiogram, which was also negative for aneurysm or any evidenc e of stenosis. Assessment of intractable headache of unclear origin was made and due to the fact that this was her t hird presentation for the same problem and she had had full workup twice in the past including CT, MR I as an LP's without clear diagnosis and the patient also had symptoms out of proportion to her physi marybel examination and lab findings. Focus was placed on symptomatic management. She was started on he r previous home medications. IV morphine and antiemetics. Neurology was also consulted who placed t he patient on losartan and also opioids She also received 1 dose of Toradol. She eventually respond ed to treatments and was deemed stable for discharge. DISCHARGE MEDICATIONS: Fioricet 1 tablet every 4 hours as needed p.r.n. for headache, gabapentin 2 t abs 3 times daily, valproic acid 500 mg twice a day, ibuprofen 800 mg every 8 hours, meclizine 25 mg every 6 hours. PHYSICAL EXAMINATION: She was examined on the day of discharge. VITAL SIGNS: Temperature 98.3 degree Fahrenheit, pulse rate 68, respiratory rate 16, oxygen saturati on 97% on room air, blood pressure 108/59. GENERAL: Not in acute distress, lying in bed comfortably. NECK: Supple, full range of movement. HEENT: PERRLA, EOMI. Moist mucous membranes. CARDIOVASCULAR: S1, S2 only. Regular rate and rhythm. No murmurs, rubs or gallops. RESPIRATORY: Vesicular breath sounds bilaterally. No wheezes, rales or rhonchi. GASTROINTESTINAL: Soft, nontender, nondistended. Positive bowel sounds. EXTREMITIES: No edema. Moves all extremities spontaneously. NEUROLOGIC: Alert and oriented to time, place and person. No focal deficits. PSYCHIATRIC: Normal mood and affect. SKIN: Warm, dry, well-perfused. No rashes or lesions. LABORATORY DATA: WBC 8.4, hemoglobin 12.2, platelet count 219. Sodium 139, potassium 4.1, chloride 106, hematocrit 27, anion gap 10, BUN 11, creatinine 0.8, glucose 117, calcium 8.8. IMAGING: CT angio, chest x-ray, brain CT, no acute pathology. PROCEDURES: None. CONSULTS: Neurology. CONDITION AT DISCHARGE: Stable and improved. DIET: Regular. CARE GOALS: To follow up with her primary care physician within 1 week of discharge. ACTIVITY: To resume as tolerated. Discharge time 65 minutes including chart review and documentation.
== END 2018-04-02 09:50 | disposition home or self-care (01) | DRG 103 ==
LOC: ERS 23:21 → 2SE 03-29 05:32 → OBSVTOIN 03-29 05:32 → 2SE 03-31 08:42
PROVIDERS: ADMIT Internal Medicine; ATTEND Internal Medicine
DX: G43.111 Migraine with aura, intractable, with status migrainosus (principal); Z68.41 Body mass index [BMI] 40.0-44.9, adult; E66.9 Obesity, unspecified; I45.6 Pre-excitation syndrome; J45.909 Unspecified asthma, uncomplicated; G93.2 Benign intracranial hypertension
CPT/HCPCS: 36415; 36416; 70450; 70496; 70498; 71045; 80048; 80053; 81003; 81015; 81025; 82553; 83735; 84443; 84484; 85025; 93005; 94760; 96361; 96365; 96367; 96375; A4216; J1110; J1200; J1885; J2270; J2550; J2765; J2930; J3475; Q0162; S0028

== ENCOUNTER 2021-07-10 00:32 | Inpatient (IN) | payer MEDICARE, SELFPAY ==
[2021-07-10] MEDS ORDERED: Acetaminophen 500 MG TAB ONE (00:55)
[2021-07-10] MEDS ORDERED: Lorazepam 2 MG/ML VIAL ONE (00:55)
[2021-07-10 01:00] LABS: #Basophils 0.1 thou/uL (0.0-0.2); #Monocytes 0.1 thou/uL (0.11-0.59); #Neutrophils 6.3 thou/uL (1.40-6.50); %Basophils 1.5 % (0.0-1.0); %Eosinophils 0.2 % (0.0-10.0); %Lymphocytes 23.1 % (21.0-51.0); %Monocytes 1.6 % (0.0-10.0); %Neutrophils 73.7 % (42.0-75.0); Hemoglobin 13.8 g/dL (12.0-16.0); Mean Corpuscular HGB CONC 33.6 g/dL (32.0-36.0); Mean Corpuscular Hemoglobin 31.9 pg (27.0-31.0); Mean Corpuscular Volume 94.9 fL (78.0-98.0); Mean Platelet Volume 7.9 fL (7.4-10.4); Platelet Count 289 thou/uL (130-400); RBC Distribution Width 12.8 % (11.5-14.5); Red Blood Cell (RBC) Count 4.32 mill/uL (4.20-5.40); White Blood Cell (WBC) Count 8.5 thou/uL (4.8-10.8)
[2021-07-10 01:20] LABS: ALT (SGPT) 15 U/L (8-55); AST (SGOT) 14 U/L (5-34); Alkaline Phosphatase 100 U/L (40-110); Anion Gap 14 mmol/L (10-20); BUN (Urea Nitrogen) 12 mg/dL (7.0-18.7); Bilirubin, Total 0.6 mg/dL (0.2-1.2); Calc. Creatinine Clearance 0 mL/min (70-130); Carbon Dioxide 24 mmol/L (22-29); Chloride 102 mmol/L (98-107); Globulin 4.5 g/dL (2.4-3.5); Glucose 179 mg/dL (70-105); Magnesium 1.8 mg/dL (1.6-2.6); Potassium 3.3 mmol/L (3.5-5.1); Protein, Total 8.5 g/dL (6.0-8.3); Sodium 137 mmol/L (136-145)
[2021-07-10] MEDS ORDERED: Ketorolac Tromethamine 30 MG/ML VIAL ONE (02:22)
[2021-07-10] MEDS ORDERED: Ondansetron ODT 4 MG TAB PO PRN (04:14)
[2021-07-10] MEDS ORDERED: Ondansetron PF 4 MG/2 ML Vial IVP PRN (04:14)
[2021-07-10] MEDS ORDERED: Acetaminophen 650 MG Suppository PR PRN (04:14)
[2021-07-10] MEDS ORDERED: Potassium Chloride 20 MEQ TAB PO SCH ×2 (04:15→06:45)
[2021-07-10] MEDS ORDERED: Electrolyte Replacement Protocol 1 EACH FS SCH (04:15)
[2021-07-10] MEDS ORDERED: Magnesium 2 GM/50 ML 2 GM in Premix Bag 1 BAG IVPB SCH ×2 (04:15→06:45)
[2021-07-10] MEDS ORDERED: Sodium Chloride 0.9% 1,000 ML IV SCH (04:30)
[2021-07-10 05:11] LABS: #Lymphocytes 0.5 thou/uL (1.20-3.40); #Monocytes 0.1 thou/uL (0.11-0.59); #Neutrophils 8.1 thou/uL (1.40-6.50); %Basophils 0.4 % (0.0-1.0); %Eosinophils 0.1 % (0.0-10.0); %Lymphocytes 5.8 % (21.0-51.0); %Monocytes 0.9 % (0.0-10.0); %Neutrophils 92.9 % (42.0-75.0); Hemoglobin 12.8 g/dL (12.0-16.0); Mean Corpuscular HGB CONC 32.2 g/dL (32.0-36.0); Mean Corpuscular Hemoglobin 30.4 pg (27.0-31.0); Mean Corpuscular Volume 94.4 fL (78.0-98.0); Platelet Count 295 thou/uL (130-400); RBC Distribution Width 12.9 % (11.5-14.5); Red Blood Cell (RBC) Count 4.22 mill/uL (4.20-5.40); White Blood Cell (WBC) Count 8.7 thou/uL (4.8-10.8)
[2021-07-10] MEDS ORDERED: Piperacillin/Tazobactam 3.375 GM VIAL ONE (05:19)
[2021-07-10 05:33] LABS: Anion Gap 16 mmol/L (10-20); BUN (Urea Nitrogen) 12 mg/dL (7.0-18.7); Calc. Creatinine Clearance 0 mL/min (70-130); Carbon Dioxide 21 mmol/L (22-29); Chloride 102 mmol/L (98-107); Glucose 226 mg/dL (70-105); Potassium 3.3 mmol/L (3.5-5.1); Sodium 136 mmol/L (136-145)
[2021-07-10 06:44] VITALS: BMI 41.3
[2021-07-10] MEDS: traMADol HCl 50 MG TAB PO PRN ×2 (09:37→22:32)
[2021-07-10] MEDS ORDERED: Heparin 1,000 UNITS/ML VIAL ONE (12:41)
[2021-07-10] MEDS: Acetaminophen 325 MG TAB PO PRN (13:20)
[2021-07-10] MEDS: diphenhydrAMINE 50 MG/ML VIAL IVP PRN (14:19)
[2021-07-10] MEDS ORDERED: methylPREDNISolone Sod Succ 40 MG VIAL IVP SCH (14:45)
[2021-07-10 21:38] LABS: SARS-CoV-2 PCR by NAA Not Detected (NotDetected)
[2021-07-10] MEDS: tiZANidine HCl 4 MG TAB PO SCH (22:32)
[2021-07-11 04:36] LABS: #Basophils 0.3 thou/uL (0.0-0.2); #Lymphocytes 1.5 thou/uL (1.20-3.40); #Neutrophils 14.8 thou/uL (1.40-6.50); %Basophils 1.5 % (0.0-1.0); %Eosinophils 0.1 % (0.0-10.0); %Lymphocytes 8.4 % (21.0-51.0); %Monocytes 5.7 % (0.0-10.0); %Neutrophils 84.4 % (42.0-75.0); Hemoglobin 12.2 g/dL (12.0-16.0); Mean Corpuscular Hemoglobin 31.4 pg (27.0-31.0); Mean Corpuscular Volume 95.4 fL (78.0-98.0); Mean Platelet Volume 8.2 fL (7.4-10.4); Platelet Count 289 thou/uL (130-400); Red Blood Cell (RBC) Count 3.87 mill/uL (4.20-5.40); White Blood Cell (WBC) Count 17.5 thou/uL (4.8-10.8)
[2021-07-11 04:58] LABS: Anion Gap 13 mmol/L (10-20); BUN (Urea Nitrogen) 13 mg/dL (7.0-18.7); Calc. Creatinine Clearance 158 mL/min (70-130); Calcium 9.5 mg/dL (7.8-10.44); Carbon Dioxide 25 mmol/L (22-29); Chloride 104 mmol/L (98-107); Glucose 114 mg/dL (70-105); Magnesium 2.3 mg/dL (1.6-2.6); Potassium 4.7 mmol/L (3.5-5.1); Sodium 137 mmol/L (136-145)
[2021-07-11] MEDS: Acetaminophen 325 MG TAB PO PRN (08:48)
[2021-07-11] MEDS: diphenhydrAMINE 50 MG/ML VIAL IVP PRN ×3 (08:51→22:58)
[2021-07-11] MEDS ORDERED: methylPREDNISolone Sod Succ 40 MG VIAL IVP SCH (09:45)
[2021-07-11] MEDS ORDERED: Famotidine/PF 20 mg/2ml Vial SLOW IVP SCH ×2 (10:29→12:15)
[2021-07-11] MEDS ORDERED: Albuterol Sulfate 2.5 mg/3 ml Neb NEB PRN (18:47)
[2021-07-11] MEDS ORDERED: MEROPENEM 1 GM/50 ML 1 GM in Premix Bag 1 BAG IVPB SCH (22:30)
[2021-07-12] MEDS: tiZANidine HCl 4 MG TAB PO SCH ×2 (01:09→19:54)
[2021-07-12 04:49] LABS: #Basophils 0.1 thou/uL (0.0-0.2); #Lymphocytes 3.2 thou/uL (1.20-3.40); #Neutrophils 9.1 thou/uL (1.40-6.50); %Basophils 0.5 % (0.0-1.0); %Eosinophils 0.4 % (0.0-10.0); %Lymphocytes 23.7 % (21.0-51.0); %Monocytes 7.5 % (0.0-10.0); %Neutrophils 67.9 % (42.0-75.0); Hemoglobin 12.7 g/dL (12.0-16.0); Mean Corpuscular HGB CONC 33.5 g/dL (32.0-36.0); Mean Corpuscular Hemoglobin 31.8 pg (27.0-31.0); Mean Corpuscular Volume 95.1 fL (78.0-98.0); Mean Platelet Volume 8.4 fL (7.4-10.4); Platelet Count 329 thou/uL (130-400); RBC Distribution Width 12.9 % (11.5-14.5); White Blood Cell (WBC) Count 13.5 thou/uL (4.8-10.8)
[2021-07-12 04:55] LABS: Anion Gap 12 mmol/L (10-20); BUN (Urea Nitrogen) 13 mg/dL (7.0-18.7); Calc. Creatinine Clearance 140 mL/min (70-130); Calcium 9.7 mg/dL (7.8-10.44); Carbon Dioxide 30 mmol/L (22-29); Chloride 99 mmol/L (98-107); Glucose 106 mg/dL (70-105); Potassium 4.6 mmol/L (3.5-5.1); Sodium 136 mmol/L (136-145)
[2021-07-12] MEDS: MEROPENEM 1 GM/50 ML 1 GM in Premix Bag 1 BAG IVPB SCH ×3 (05:30→22:12)
[2021-07-12] MEDS ORDERED: Meropenem 1 GM in Sodium Chloride 0.9% 100 ML IVPB SCH (06:00)
[2021-07-12] MEDS: methylPREDNISolone Sod Succ 40 MG VIAL IVP SCH (08:51)
[2021-07-12] MEDS: Acetaminophen 325 MG TAB PO PRN (08:51)
[2021-07-12] MEDS: Famotidine/PF 20 mg/2ml Vial SLOW IVP SCH (08:51)
[2021-07-12] MEDS: traMADol HCl 50 MG TAB PO PRN (09:01)
[2021-07-12] MEDS: diphenhydrAMINE 50 MG/ML VIAL IVP PRN (11:09)
[2021-07-13 04:35] LABS: #Eosinphils 0.1 thou/uL (0.0-0.7); #Lymphocytes 3.7 thou/uL (1.20-3.40); %Basophils 0.4 % (0.0-1.0); %Eosinophils 0.5 % (0.0-10.0); %Lymphocytes 31.3 % (21.0-51.0); %Monocytes 8.4 % (0.0-10.0); %Neutrophils 59.4 % (42.0-75.0); Hemoglobin 13.8 g/dL (12.0-16.0); Mean Corpuscular HGB CONC 33.9 g/dL (32.0-36.0); Mean Corpuscular Hemoglobin 32.1 pg (27.0-31.0); Mean Corpuscular Volume 94.7 fL (78.0-98.0); Mean Platelet Volume 8.2 fL (7.4-10.4); Platelet Count 334 thou/uL (130-400); RBC Distribution Width 12.9 % (11.5-14.5); Red Blood Cell (RBC) Count 4.31 mill/uL (4.20-5.40); White Blood Cell (WBC) Count 11.7 thou/uL (4.8-10.8)
[2021-07-13 04:57] LABS: Anion Gap 12 mmol/L (10-20); BUN (Urea Nitrogen) 11 mg/dL (7.0-18.7); Calc. Creatinine Clearance 152 mL/min (70-130); Calcium 9.7 mg/dL (7.8-10.44); Carbon Dioxide 30 mmol/L (22-29); Chloride 100 mmol/L (98-107); Glucose 94 mg/dL (70-105); Potassium 3.7 mmol/L (3.5-5.1); Sodium 138 mmol/L (136-145)
[2021-07-13] MEDS: MEROPENEM 1 GM/50 ML 1 GM in Premix Bag 1 BAG IVPB SCH ×3 (06:27→21:04)
[2021-07-13] MEDS: methylPREDNISolone Sod Succ 40 MG VIAL IVP SCH (08:25)
[2021-07-13] MEDS: Famotidine/PF 20 mg/2ml Vial SLOW IVP SCH (08:25)
[2021-07-13] MEDS ORDERED: hydrOXYzine 25 MG TAB PO SCH (11:45)
[2021-07-13] MEDS: traMADol HCl 50 MG TAB PO PRN (12:16)
[2021-07-13] MEDS: tiZANidine HCl 4 MG TAB PO SCH (21:04)
[2021-07-13] MEDS: Melatonin 3 MG TAB PO PRN (21:04)
[2021-07-14] MEDS: MEROPENEM 1 GM/50 ML 1 GM in Premix Bag 1 BAG IVPB SCH ×2 (04:55→15:29)
[2021-07-14] MEDS: methylPREDNISolone Sod Succ 40 MG VIAL IVP SCH (08:18)
[2021-07-14] MEDS: Famotidine/PF 20 mg/2ml Vial SLOW IVP SCH (08:18)
[2021-07-14 08:50] LABS: #Basophils 0.1 thou/uL (0.0-0.2); #Eosinphils 0.3 thou/uL (0.0-0.7); #Lymphocytes 3.7 thou/uL (1.20-3.40); #Monocytes 0.8 thou/uL (0.11-0.59); #Neutrophils 7.8 thou/uL (1.40-6.50); %Basophils 0.4 % (0.0-1.0); %Eosinophils 2.6 % (0.0-10.0); %Lymphocytes 28.9 % (21.0-51.0); %Monocytes 6.6 % (0.0-10.0); %Neutrophils 61.5 % (42.0-75.0); Hemoglobin 14.9 g/dL (12.0-16.0); Mean Corpuscular HGB CONC 32.8 g/dL (32.0-36.0); Mean Corpuscular Hemoglobin 31.1 pg (27.0-31.0); Mean Corpuscular Volume 94.7 fL (78.0-98.0); Mean Platelet Volume 7.9 fL (7.4-10.4); Platelet Count 346 thou/uL (130-400); RBC Distribution Width 12.8 % (11.5-14.5); Red Blood Cell (RBC) Count 4.79 mill/uL (4.20-5.40); White Blood Cell (WBC) Count 12.6 thou/uL (4.8-10.8)
[2021-07-14 09:08] LABS: Anion Gap 11 mmol/L (10-20); BUN (Urea Nitrogen) 14 mg/dL (7.0-18.7); Calc. Creatinine Clearance 150 mL/min (70-130); Calcium 9.5 mg/dL (7.8-10.44); Carbon Dioxide 31 mmol/L (22-29); Chloride 98 mmol/L (98-107); Glucose 86 mg/dL (70-105); Sodium 136 mmol/L (136-145)
[2021-07-14] MEDS: diphenhydrAMINE 50 MG/ML VIAL IVP PRN (20:38)
[2021-07-14] MEDS ORDERED: methylPREDNISolone Sod Succ 40 MG VIAL IVP SCH (21:00)
[2021-07-14] MEDS: Ertapenem 1 GM in Sodium Chloride 0.9% 100 ML IVPB SCH (21:57)
[2021-07-14] MEDS: tiZANidine HCl 4 MG TAB PO SCH (22:52)
[2021-07-14] MEDS: Melatonin 3 MG TAB PO PRN (22:52)
[2021-07-15 05:31] LABS: #Lymphocytes 1.4 thou/uL (1.20-3.40); #Monocytes 0.2 thou/uL (0.11-0.59); #Neutrophils 13.9 thou/uL (1.40-6.50); %Basophils 0.1 % (0.0-1.0); %Eosinophils 0.1 % (0.0-10.0); %Lymphocytes 8.9 % (21.0-51.0); %Monocytes 0.9 % (0.0-10.0); %Neutrophils 89.9 % (42.0-75.0); Hemoglobin 14.7 g/dL (12.0-16.0); Mean Corpuscular Hemoglobin 29.3 pg (27.0-31.0); Mean Corpuscular Volume 94.5 fL (78.0-98.0); Mean Platelet Volume 8.1 fL (7.4-10.4); Platelet Count 340 thou/uL (130-400); RBC Distribution Width 12.9 % (11.5-14.5); Red Blood Cell (RBC) Count 5.01 mill/uL (4.20-5.40); White Blood Cell (WBC) Count 15.5 thou/uL (4.8-10.8)
[2021-07-15 05:54] LABS: Anion Gap 13 mmol/L (10-20); BUN (Urea Nitrogen) 13 mg/dL (7.0-18.7); Calc. Creatinine Clearance 160 mL/min (70-130); Calcium 9.7 mg/dL (7.8-10.44); Carbon Dioxide 27 mmol/L (22-29); Chloride 99 mmol/L (98-107); Glucose 138 mg/dL (70-105); Potassium 4.3 mmol/L (3.5-5.1); Sodium 135 mmol/L (136-145)
[2021-07-15] MEDS: Acetaminophen 325 MG TAB PO PRN (08:06)
[2021-07-15] MEDS: Famotidine/PF 20 mg/2ml Vial SLOW IVP SCH (08:07)
[2021-07-15] MEDS: methylPREDNISolone Sod Succ 40 MG VIAL IVP SCH (08:08)
[2021-07-15 12:32] LABS: Troponin I Less than 0.010 ng/mL (< 0.028)
[2021-07-15] MEDS ORDERED: hydrOXYzine 25 MG/ML VIAL FS SCH (13:15)
[2021-07-15] MEDS: Ertapenem 1 GM in Sodium Chloride 0.9% 100 ML IVPB SCH (21:05)
[2021-07-15] MEDS: MEROPENEM 1 GM/50 ML 1 GM in Premix Bag 1 BAG IVPB SCH (21:07)
[2021-07-15] MEDS: tiZANidine HCl 4 MG TAB PO SCH (21:08)
[2021-07-15] MEDS: Melatonin 3 MG TAB PO PRN (21:12)
[2021-07-16 05:06] LABS: #Eosinphils 0.1 thou/uL (0.0-0.7); #Lymphocytes 3.6 thou/uL (1.20-3.40); #Neutrophils 10.8 thou/uL (1.40-6.50); %Basophils 0.1 % (0.0-1.0); %Eosinophils 0.4 % (0.0-10.0); %Lymphocytes 23.2 % (21.0-51.0); %Monocytes 6.5 % (0.0-10.0); %Neutrophils 69.8 % (42.0-75.0); Hemoglobin 14.2 g/dL (12.0-16.0); Mean Corpuscular HGB CONC 31.8 g/dL (32.0-36.0); Mean Corpuscular Hemoglobin 30.1 pg (27.0-31.0); Mean Corpuscular Volume 94.9 fL (78.0-98.0); Mean Platelet Volume 8.5 fL (7.4-10.4); Platelet Count 307 thou/uL (130-400); RBC Distribution Width 12.9 % (11.5-14.5); Red Blood Cell (RBC) Count 4.72 mill/uL (4.20-5.40); White Blood Cell (WBC) Count 15.4 thou/uL (4.8-10.8)
[2021-07-16] MEDS: MEROPENEM 1 GM/50 ML 1 GM in Premix Bag 1 BAG IVPB SCH ×2 (05:25→11:44)
[2021-07-16 05:26] LABS: Anion Gap 12 mmol/L (10-20); BUN (Urea Nitrogen) 16 mg/dL (7.0-18.7); Calc. Creatinine Clearance 160 mL/min (70-130); Calcium 9.4 mg/dL (7.8-10.44); Carbon Dioxide 28 mmol/L (22-29); Chloride 101 mmol/L (98-107); Glucose 114 mg/dL (70-105); Potassium 3.7 mmol/L (3.5-5.1); Sodium 137 mmol/L (136-145)
[2021-07-16] MEDS: Famotidine/PF 20 mg/2ml Vial SLOW IVP SCH (08:38)
[2021-07-16] MEDS: methylPREDNISolone Sod Succ 40 MG VIAL IVP SCH (08:38)
[2021-07-16] MEDS ORDERED: Metoprolol Tartrate 25 MG TAB PO SCH (15:49)
[2021-07-16] MEDS ORDERED: Ertapenem 1 GM in Sodium Chloride 0.9% 100 ML IVPB SCH (18:00)
[2021-07-16 19:44] VITALS: BP 118/71; TEMP 97.9
== END 2021-07-16 23:00 | disposition home health service (06) | DRG 916 ==
LOC: ERS 00:32 → 2NO 03:49 → OBSVTOIN 07-12 15:21
PROVIDERS: ADMIT Student in an Organized Health Care Education/Training Program; ATTEND Internal Medicine
PROC: 02HV33Z Insertion of Infusion Device into Superior Vena Cava, Percutaneous Approach (ICD-10-PCS; principal; 2021-07-13)
PROC: B5181ZA Fluoroscopy of Superior Vena Cava using Low Osmolar Contrast, Guidance (ICD-10-PCS; 2021-07-13)
PROC: B548ZZA Ultrasonography of Superior Vena Cava, Guidance (ICD-10-PCS; 2021-07-13)
DX: T88.6XXA Anaphylactic reaction due to adverse effect of correct drug or medicament properly administered, initial encounter (principal); I47.2 Ventricular tachycardia; T78.3XXA Angioneurotic edema, initial encounter; Z20.822 Contact with and (suspected) exposure to COVID-19; T36.8X5A Adverse effect of other systemic antibiotics, initial encounter; E87.6 Hypokalemia; J45.909 Unspecified asthma, uncomplicated; I45.6 Pre-excitation syndrome; I49.3 Ventricular premature depolarization; I45.81 Long QT syndrome; Z88.2 Allergy status to sulfonamides; Z88.8 Allergy status to other drugs, medicaments and biological substances; Z88.1 Allergy status to other antibiotic agents; Z91.041 Radiographic dye allergy status; Z28.21 Immunization not carried out because of patient refusal; Z79.899 Other long term (current) drug therapy; Z90.49 Acquired absence of other specified parts of digestive tract; Z98.51 Tubal ligation status; Z92.89 Personal history of other medical treatment; Z82.49 Family history of ischemic heart disease and other diseases of the circulatory system
CPT/HCPCS: 36415; 36569; 71045; 80048; 80053; 83735; 84484; 85025; 93005; 93010; 93017; 93306; 94640; 94760; 96374; 96375; 96376; C1751; G0378; J1200; J1335; J1644; J1885; J2060; J2185; J2543; J2920; J3410; J3475; J3490; J7611; S0028; U0003; U0005

== ENCOUNTER 2021-07-21 13:35 | Day surgery (SDC) | payer MEDICARE, MEDICAID | END 2021-07-21 16:47 | disposition home or self-care (01) | LOC: ONC/OP 13:35 | PROVIDERS: ATTEND Internal Medicine Infectious Disease | DX: K57.92 Diverticulitis of intestine, part unspecified, without perforation or abscess without bleeding (principal); Z88.0 Allergy status to penicillin; Z88.1 Allergy status to other antibiotic agents; Z88.2 Allergy status to sulfonamides; Z88.5 Allergy status to narcotic agent; Z88.8 Allergy status to other drugs, medicaments and biological substances; Z91.018 Allergy to other foods; Z91.041 Radiographic dye allergy status | CPT/HCPCS: 99211; G0463 ==